=== PATIENT | female | born 1985 | race Caucasian/White ===

== ENCOUNTER 2016-11-20 16:28 | Emergency (ER) | payer MEDICAID ==
[2016-11-20] MEDS ORDERED: NORMAL SALINE 1000 ML 1,000 ML IV ONE (16:35)
[2016-11-20] MEDS ORDERED: ONDANSETRON HCL INJ/PF 4 MG/2 ML SDV IV ONE (16:35)
[2016-11-20] MEDS ORDERED: KETOROLAC TROMETHAMINE INJ/PF 30 MG/1 ML SDV IV ONE (16:35)
[2016-11-20] MEDS ORDERED: MORPHINE SULFATE 10 MG/ML INJ IV ONE (16:38)
--- NOTE | 2016-11-20 16:38 | ER Document Report ---
ED Medical Screen (RME) - General Stated Complaint: LOW RIGHT QUADRANT PAIN Time seen by provider: 16:37 Mode of Arrival: Wheelchair Information source: Patient Notes: 31-year-old female that drove herself to the emergency room is clammy and pale complaining of sudden onset of right lower quadrant pain 2 hours ago. No history of kidney stones. She is hyperventilating, flailing and screaming in pain. I have greeted and performed a rapid initial assessment of this patient. A comprehensive ED assessment, evaluation of the patient, analysis of test results , and completion of the medical decision making process will be contacted by additional ED providers. TRAVEL OUTSIDE OF THE [place] IN LAST 30 DAYS: No - Related Data Allergies/Adverse Reactions: Sulfa (Sulfonamide Antibiotics) Allergy (Intermediate, Verified 08/10/16 18:25) Hives Past Medical History Pulmonary Medical History: Reports: Hx Pneumonia - AN Renal/ Medical History: Reports: Hx Kidney Stones Psychiatric Medical History: Reports: Hx Anxiety, Hx Attention Deficit Hyperactivity Disorder, Hx Depression Past Surgical History: Reports: Hx Section - x1, Hx Oral Surgery - JAW , Hx Orthopedic Surgery - L arm, jaw - Immunizations Immunizations up to date: Yes Hx Diphtheria, Pertussis, Tetanus Vaccination: Yes
[2016-11-20 17:02] LABS: ABSOLUTE BASOPHILS # (AUTO) 0.1 10^3/uL (0.0-0.2); ABSOLUTE EOSINOPHILS # (AUTO) 0.1 10^3/uL (0.0-0.6); ABSOLUTE LYMPHOCYTES (AUTO) 4.5 10^3/uL (0.5-4.7); ABSOLUTE MONOCYTES (AUTO) 1.4 10^3/uL (0.1-1.4); ABSOLUTE NEUT (AUTO) 7.9 10^3/uL (1.7-8.2); BASOPHILS % (AUTO) 0.5 % (0-2); EOSINOPHILS % (AUTO) 0.4 % (0-6); HEMATOCRIT 37.9 % (36.0-47.0); HEMOGLOBIN 12.6 g/dL (12.0-15.5); HGB HCT DIFFERENCE -0.1; LYMPHOCYTES % (AUTO) 32.1 % (13-45); MEAN CORPUSCULAR HEMOGLOBIN 28.5 pg (27.0-33.4); MEAN CORPUSCULAR HGB CONC 33.2 g/dL (32.0-36.0); MEAN CORPUSCULAR VOLUME 86 fl (80-97); MONOCYTES % (AUTO) 10.3 % (3-13); RED BLOOD COUNT 4.42 10^6/uL (3.72-5.28); RED CELL DISTRIBUTION WIDTH 16.8 % (11.5-14.0); SEGMENTED NEUTROPHILS % (AUTO) 56.7 % (42-78)
[2016-11-20 17:22] LABS: ALANINE AMINOTRANSFERASE 17 U/L (9-52); ALBUMIN 4.4 g/dL (3.5-5.0); ALKALINE PHOSPHATASE 76 U/L (38-126); ANION GAP 13 (5-19); ASPARTATE AMINO TRANSFERASE 15 U/L (14-36); BILIRUBIN,TOTAL 0.4 mg/dL (0.2-1.3); BLOOD UREA NITROGEN 13 mg/dL (7-20); CARBON DIOXIDE 21 mmol/L (22-30); CHLORIDE 105 mmol/L (98-107); CREATININE RESULT 0.69 mg/dL (0.52-1.25); GLUCOSE 126 mg/dL (75-110); SODIUM 138.9 mmol/L (137-145); TOTAL PROTEIN 7.5 g/dL (6.3-8.2)
[2016-11-20] MEDS ORDERED: HYDROMORPHONE HCL INJ/PF 2 MG/ML AMPULE IV ONE (17:22)
[2016-11-20] MEDS ORDERED: NORMAL SALINE 1000 ML 1,000 ML IV PRN (17:23)
--- NOTE | 2016-11-20 17:27 | ER Document Report ---
ED GI/ - General Chief Complaint: Abdominal Pain Stated Complaint: LOW RIGHT QUADRANT PAIN Time seen by provider: 17:26 Mode of Arrival: Wheelchair Information source: Patient Notes: This is a 31-year-old female with a history of ADHD, depression, anxiety who presents to the emergency room with lower abdominal pain since yesterday. Patient is 2 para 2 when states she just started bleeding this morning. Positive nausea. TRAVEL OUTSIDE OF THE [place] IN LAST 30 DAYS: No - HPI Patient complains to provider of: Abdominal pain Onset: Yesterday Timing/Duration: Gradual Quality of pain: Dull Severity at maximum: Moderate Severity in ED: Moderate Pain Level: 4 Context: denies: Bad food, Lifting, Location: Suprapubic Vaginal bleeding (Compared to normal period): Heavier Sexual history: Active Associated symptoms: denies: Constipation, Shortness of breath Exacerbated by: Denies Relieved by: Denies Similar symptoms previously: No Recently seen / treated by doctor: No - Related Data Allergies/Adverse Reactions: Sulfa (Sulfonamide Antibiotics) Allergy (Intermediate, Verified 08/10/16 18:25) Hives Past Medical History - General Information source: Patient - Social History Smoking Status: Current Every Day Smoker Cigarette use (# per day): Yes Chew tobacco use (# tins/day): No Smoking Education Provided: No - 1 pack per day Frequency of alcohol use: None Drug Abuse: None Lives with: Family Family History: None Patient has suicidal ideation: No Patient has homicidal ideation: No - Medical History Medical History: Negative Pulmonary Medical History: Reports: Hx Pneumonia - AN Renal/ Medical History: Reports: Hx Kidney Stones Psychiatric Medical History: Reports: Hx Anxiety, Hx Attention Deficit Hyperactivity Disorder, Hx Depression Past Surgical History: Reports: Hx Section - x1, Hx Oral Surgery - JAW , Hx Orthopedic Surgery - L arm, jaw - Immunizations Immunizations up to date: Yes Hx Diphtheria, Pertussis, Tetanus Vaccination: Yes Hx Pneumococcal Vaccination: 10/09/00 Review of Systems - Review of Systems Notes: Review of systems: Constitutional: Denies fever, chills. EENT: Denies ear pain, sinus tenderness, throat pain, throat swelling. Cardiovascular: Denies chest pain, palpitations, dyspnea or edema. Respiratory: Denies wheezing, cough, hemoptysis. Abdomen: Lower abdominal pain. Positive nausea. No blood per rectum. Genitourinary: Vaginal bleeding Musculoskeletal: denies joint pain or swelling, denies back pain. Neurologic: Denies headache, photophobia, neck stiffness, weakness. Denies loss of bowel or bladder function. Denies saddle anesthesia. Skin: Denies rash, lesions. Physical Exam - Vital signs Vitals: Resp Pulse Ox 13 99 11/20/16 16:44 11/20/16 16:44 Notes: Physical exam: GENERAL: 31-year-old female, alert and oriented 3, appears in distress. HEAD: Atraumatic, normocephalic. EYES: Pupils equal round and reactive to light, extraocular movements intact, sclera anicteric, conjunctiva are normal. ENT: TMs normal, nares patent, oropharynx clear without exudates. Moist mucous membranes. NECK: Normal range of motion, supple without lymphadenopathy or JVD. LUNGS: Breath sounds clear to auscultation bilaterally and equal. No wheezes rales or rhonchi. HEART: Regular rate and rhythm without murmurs, rubs or gallops. ABDOMEN: Soft, normoactive bowel sounds. Patient does have lower abdominal ( suprapubic) tenderness. No guarding, no rebound. No masses appreciated. Vaginal: Performed with female motion picture scene builder. There is blood in the vault without tissue. Patient does have uterine tenderness. The os is closed. EXTREMITIES: Normal range of motion, no pitting or edema. No clubbing or cyanosis. NEUROLOGICAL: Cranial nerves II through XII grossly intact. Normal speech, normal gait. PSYCH: Normal mood, normal affect. SKIN: Warm, Dry, normal turgor, no rashes or lesions noted. Course - Vital Signs Vital signs: Temp Pulse Resp BP Pulse Ox 20 124/79 99 11/20/16 19:01 11/20/16 19:01 11/20/16 19:01 - Laboratory Result Diagrams: 11/20/16 16:35 11/20/16 16:35 Laboratory results interpreted by me: 11/20/16 11/20/16 16:35 16:35 WBC 14.0 H RDW 16.8 H Carbon Dioxide 21 L Glucose 126 H Beta HCG, Quant 212.75 H - Diagnostic Test Radiology reviewed: Image reviewed, Reports reviewed - Transvaginal ultrasound reveals an 8 week gestational without a pole. It is an abnormal sac which is moving down to the cervix: Miscarriage in progress. Discharge - Discharge Clinical Impression: miscarriage Condition: Stable Disposition: HOME, SELF-CARE Instructions: Miscarriage ([facility]), Miscarriage Impending ([facility]) Additional Instructions: Recommendations: Rest, drink plenty of fluids, take Percocet as needed for pain. Take Phenergan for nausea. You will experience passage of tissue and bleeding. Return to the emergency room for worsening pain, worsening bleeding or any concerns he getting worse. Call the [facility] tomorrow: Tell them that you were seen in the emergency room and treated for pain and bleeding in the setting of early and they wanted to followed up in clinic. Prescriptions: Oxycodone HCl/Acetaminophen [Percocet 5-325 mg Tablet] 1 - 2 tab PO ASDIR PRN # 25 tablet PRN Reason: Promethazine HCl [Phenergan 25 mg Tablet] 25 mg PO Q6H PRN #15 tablet PRN Reason: Forms: Return to Work Referrals: ELENA MOELLER MD [ACTIVE STAFF] - Follow up in 1 week (Call the clinic tomorrow for follow-up appointment: Let them know that you were in the emergency room for pain and vaginal bleeding and the ultrasound showed a miscarriage in progress.)
[2016-11-20 17:31] LABS: POTASSIUM 3.7 mmol/L (3.6-5.0)
[2016-11-20] MEDS ORDERED: ONDANSETRON ODT 4 MG TAB (6 TAB/DSPK) PO PRN (18:56)
[2016-11-20] MEDS ORDERED: HYDROCODONE/ACETAMINOPHEN 5-325 MG 6 TAB/DSPK PO PRN (18:56)
[2016-11-20 19:10] VITALS: BP 124/79
== END 2016-11-20 19:45 | disposition home or self-care (01) ==
LOC: ER 16:28
DX: O03.9 Complete or unspecified spontaneous abortion without complication (principal); R10.31 Right lower quadrant pain; F17.210 Nicotine dependence, cigarettes, uncomplicated; Z88.2 Allergy status to sulfonamides; Z87.442 Personal history of urinary calculi
CPT/HCPCS: 99284; 96361; 96374; 96375; 36415; 84702; 85025; 80053; 76817; J1885; J2270; J1170; J2405; J7030

== ENCOUNTER 2016-12-04 13:12 | Inpatient (IN) | payer SELFPAY ==
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
[2016-12-04 14:43] LABS: HEMATOCRIT 35.3 % (36.0-47.0); HEMOGLOBIN 11.9 g/dL (12.0-15.5); HGB HCT DIFFERENCE 0.4; MEAN CORPUSCULAR HEMOGLOBIN 28.6 pg (27.0-33.4); MEAN CORPUSCULAR HGB CONC 33.8 g/dL (32.0-36.0); MEAN CORPUSCULAR VOLUME 85 fl (80-97); RED BLOOD COUNT 4.18 10^6/uL (3.72-5.28); RED CELL DISTRIBUTION WIDTH 16.3 % (11.5-14.0); WHITE BLOOD COUNT 25.6 10^3/uL (4.0-10.5)
[2016-12-04 14:51] LABS: APPEARANCE,URINE CLOUDY; BILIRUBIN,URINE NEGATIVE (NEGATIVE); GLUCOSE, URINE NEGATIVE (NEGATIVE); KETONES,URINE NEGATIVE (NEGATIVE); LEUKOCYTE ESTERASE,URINE SMALL (NEGATIVE); NITRITE,URINE NEGATIVE (NEGATIVE); PROTEIN,URINE 30 mg/dL (NEGATIVE); URINE SPECIFIC GRAVITY 1.017; UROBILINOGEN,URINE NEGATIVE mg/dL (<2.0)
[2016-12-04 14:59] LABS: URINE BARBITURATES SCREEN NEGATIVE; URINE METHADONE SCREEN NEGATIVE; URINE OPIATES LOW NEGATIVE; URINE PHENCYCLIDINE SCREEN NEGATIVE
[2016-12-04 15:02] LABS: BASOPHILS % (MANUAL) 0 % (0-2); EOSINOPHILS % (MANUAL) 0 % (0-6); LYMPHOCYTES % (MANUAL) 12 % (13-45); TOTAL CELLS COUNTED 100
[2016-12-04 15:03] LABS: ANISOCYTOSIS SLIGHT
[2016-12-04 15:04] LABS: ALANINE AMINOTRANSFERASE 38 U/L (9-52); ALBUMIN 4.8 g/dL (3.5-5.0); ALKALINE PHOSPHATASE 112 U/L (38-126); ANION GAP 18 (5-19); ASPARTATE AMINO TRANSFERASE 47 U/L (14-36); BILIRUBIN,TOTAL 0.7 mg/dL (0.2-1.3); BLOOD UREA NITROGEN 68 mg/dL (7-20); CALCIUM 10.4 mg/dL (8.4-10.2); CARBON DIOXIDE 15 mmol/L (22-30); CHLORIDE 96 mmol/L (98-107); CREATININE RESULT 3.71 mg/dL (0.52-1.25); GLUCOSE 102 mg/dL (75-110); POTASSIUM 3.9 mmol/L (3.6-5.0); TOTAL PROTEIN 8.4 g/dL (6.3-8.2)
[2016-12-04] MEDS: NORMAL SALINE 1000 ML 1,000 ML IV PRN ×2 (15:31→18:07)
[2016-12-04] MEDS ORDERED: LORAZEPAM INJ 2 MG/1 ML VIAL IV ONE (15:51)
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
[2016-12-04] MEDS ORDERED: NORMAL SALINE 1000 ML 1,000 ML IV PRN (17:39)
[2016-12-04] MEDS ORDERED: PROMETHAZINE HCL 25 MG TABLET PO PRN (17:39)
[2016-12-04] MEDS ORDERED: MAGNESIUM HYDROXIDE SUSP 30 ML UDCUP PO PRN (17:39)
[2016-12-04 18:29] LABS: MAGNESIUM 2.4 mg/dL (1.6-2.3); PHOSPHORUS 5.5 mg/dL (2.5-4.5)
[2016-12-04 18:35] LABS: ALCOHOL < 10 mg/dL (NONE DETECTED)
[2016-12-04 23:46] LABS: ANION GAP 9 (5-19); CALCIUM 8.6 mg/dL (8.4-10.2); CARBON DIOXIDE 20 mmol/L (22-30); CHLORIDE 104 mmol/L (98-107); CREATININE RESULT 1.49 mg/dL (0.52-1.25); GLUCOSE 121 mg/dL (75-110); POTASSIUM 3.3 mmol/L (3.6-5.0); SODIUM 132.7 mmol/L (137-145)
[2016-12-05 00:03] LABS: BLOOD UREA NITROGEN 45 mg/dL (7-20)
[2016-12-05] MEDS: HEPARIN SOD (PORCINE) 5,000 UNIT/ML 1 ML SYRINGE SUBCUT SCH ×2 (00:11→05:42)
[2016-12-05] MEDS: FAMOTIDINE 20 MG TABLET PO SCH ×2 (00:12→11:45)
[2016-12-05] MEDS: LORAZEPAM INJ 2 MG/1 ML VIAL IV PRN ×2 (00:13→01:32)
[2016-12-05] MEDS: ACETAMINOPHEN 325 MG TABLET PO PRN ×2 (01:32→05:42)
[2016-12-05] MEDS ORDERED: LORAZEPAM INJ 2 MG/1 ML VIAL IV PRN (02:07)
[2016-12-05] MEDS ORDERED: POTASSIUM CHLORIDE 20 MEQ/15 ML UDCUP PO ONE (02:15)
[2016-12-05] MEDS ORDERED: POTASSIUM CHLORIDE 20 MEQ/15 ML UDCUP ONE (02:48)
[2016-12-05 07:34] LABS: ABSOLUTE LYMPHOCYTES (AUTO) 1.8 10^3/uL (0.5-4.7); ABSOLUTE NEUT (AUTO) 7.5 10^3/uL (1.7-8.2); BASOPHILS % (AUTO) 0.3 % (0-2); EOSINOPHILS % (AUTO) 0.4 % (0-6); HGB HCT DIFFERENCE 0.5; LYMPHOCYTES % (AUTO) 17.2 % (13-45); MEAN CORPUSCULAR HEMOGLOBIN 29.2 pg (27.0-33.4); MEAN CORPUSCULAR HGB CONC 33.7 g/dL (32.0-36.0); MEAN CORPUSCULAR VOLUME 87 fl (80-97); MONOCYTES % (AUTO) 9.4 % (3-13); RED BLOOD COUNT 3.24 10^6/uL (3.72-5.28); RED CELL DISTRIBUTION WIDTH 16.3 % (11.5-14.0); SEGMENTED NEUTROPHILS % (AUTO) 72.7 % (42-78); WHITE BLOOD COUNT 10.4 10^3/uL (4.0-10.5)
[2016-12-05 07:38] LABS: ANION GAP 9 (5-19); BLOOD UREA NITROGEN 30 mg/dL (7-20); CALCIUM 8.5 mg/dL (8.4-10.2); CARBON DIOXIDE 17 mmol/L (22-30); CHLORIDE 110 mmol/L (98-107); CREATINE KINASE 899 U/L (30-135); CREATININE RESULT 0.94 mg/dL (0.52-1.25); GLUCOSE 104 mg/dL (75-110); POTASSIUM 3.8 mmol/L (3.6-5.0); SODIUM 135.6 mmol/L (137-145)
[2016-12-05 07:43] LABS: HEMOGLOBIN 9.5 g/dL (12.0-15.5)
--- NOTE | 2016-12-05 08:09 | EKG REPORT ---
SEVERITY:- BORDERLINE ECG - SINUS TACHYCARDIA BORDERLINE T WAVE ABNORMALITIES : Confirmed by: Gurpreet Smith MD 05-Dec-2016 08:08:53
[2016-12-05] MEDS ORDERED: DOCUSATE SODIUM 100 MG CAPSULE PO SCH (10:00)
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
[2016-12-05 14:11] VITALS: BP 128/71
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
[2016-12-06 11:40] LABS: CREATININE URINE 104.8 mg/dL (Not Estab.)
== END 2016-12-05 16:36 | disposition home or self-care (01) | DRG 683 ==
LOC: ER 13:12 → EH 16:06 → UNDOADMIN 16:06 → EEVIPCON 17:39 → EH 17:39 → 2N 20:37 → 4N 12-05 04:15
DX: N17.0 Acute kidney failure with tubular necrosis (principal); E87.1 Hypo-osmolality and hyponatremia; E87.2 Acidosis; D63.8 Anemia in other chronic diseases classified elsewhere; D72.823 Leukemoid reaction; T79.6XXA Traumatic ischemia of muscle, initial encounter; Y04.0XXA Assault by unarmed brawl or fight, initial encounter; F14.10 Cocaine abuse, uncomplicated; R25.8 Other abnormal involuntary movements; F90.9 Attention-deficit hyperactivity disorder, unspecified type; F41.1 Generalized anxiety disorder; F32.9 Major depressive disorder, single episode, unspecified; F60.9 Personality disorder, unspecified; F17.210 Nicotine dependence, cigarettes, uncomplicated; Z79.899 Other long term (current) drug therapy; Z88.2 Allergy status to sulfonamides
CPT/HCPCS: 36415; 76775; 80048; 80053; 80307; 81001; 82550; 82570; 83605; 83735; 83930; 83935; 84100; 84156; 84300; 84443; 84703; 85025; 93005; 93010; 99291; J1644; J2060; J7030

== ENCOUNTER → 2016-12-12 | Outpatient (CLI) | payer OTHER | LOC: CCC 11:41 | DX: E05.80 Other thyrotoxicosis without thyrotoxic crisis or storm (principal); Z53.9 Procedure and treatment not carried out, unspecified reason ==

== ENCOUNTER → 2016-12-31 | Outpatient (CLI) | payer OTHER ==
[2016-12-31 14:15] LABS: THYROID STIMULATING HORMONE 0.72 uIU/mL (0.47-4.68)
== END ==
LOC: OD 09:12
DX: E06.9 Thyroiditis, unspecified (principal)
CPT/HCPCS: 36415; 82550; 83036; 84439; 84443

== ENCOUNTER 2017-09-08 20:35 | Emergency (ER) | payer SELFPAY ==
[2017-09-08 21:01] VITALS: BP 107/73
--- NOTE | 2017-09-08 23:40 | ER Document Report ---
HPI - HPI Pain Level: Denies - CONSTITUTIONAL Constitutional: REPORTS: Fever. DENIES: Chills - EENT EENT: REPORTS: Sore Throat - RESPIRATORY Respiratory: REPORTS: Coughing - nonproductive - REPRODUCTIVE LMP: now Reproductive: DENIES: : Past Medical History - Social History Smoking Status: Current Every Day Smoker Chew tobacco use (# tins/day): No Frequency of alcohol use: None Drug Abuse: None Family History: None Patient has suicidal ideation: No Patient has homicidal ideation: No Pulmonary Medical History: Reports: Hx Pneumonia - AN INFANT Renal/ Medical History: Reports: Hx Kidney Stones. Denies: Hx Peritoneal Dialysis Psychiatric Medical History: Reports: Hx Anxiety, Hx Attention Deficit Hyperactivity Disorder, Hx Depression - anxiety, Hx Personality Disorder Past Surgical History: Reports: Hx Section - x2, Hx Oral Surgery - JAW , Hx Orthopedic Surgery - L arm, jaw - Immunizations Immunizations up to date: Yes Hx Diphtheria, Pertussis, Tetanus Vaccination: Yes Hx Pneumococcal Vaccination: 10/09/00 Vertical Provider Document - INFECTION CONTROL TRAVEL OUTSIDE OF THE [place] IN LAST 30 DAYS: No - RESPIRATORY O2 Sat by Pulse Oximetry: 93 Course - Vital Signs Vital signs: Temp Pulse Resp BP Pulse Ox 98.3 F 90 20 107/73 93 09/08/17 21:01 09/08/17 21:01 09/08/17 21:01 09/08/17 21:01 09/08/17 21:01
== END 2017-09-08 23:40 | disposition left against medical advice (07) ==
LOC: ER 20:35
DX: Z53.21 Procedure and treatment not carried out due to patient leaving prior to being seen by health care provider (principal)

== ENCOUNTER 2018-03-28 13:45 | Emergency (ER) | payer SELFPAY ==
[2018-03-28] MEDS ORDERED: NORMAL SALINE 1000 ML 1,000 ML IV PRN (14:08)
[2018-03-28] MEDS ORDERED: ONDANSETRON 4 MG TAB.RAPDIS PO ONE (14:08)
--- NOTE | 2018-03-28 14:11 | ER Document Report ---
ED Medical Screen (RME) - General Chief Complaint: Vomiting Stated Complaint: VOMITING Time Seen by Provider: 03/28/18 14:05 Notes: The patient is a 32-year-old female who presents with 3 days of nausea and vomiting. She is trying to drink Gatorade, but is throwing it up. She denies abdominal pain, diarrhea, constipation, hematemesis or urinary symptoms. PE: Tachycardia, non-tender abdomen, normal bowel sounds I have greeted and performed a rapid initial assessment of this patient. A comprehensive ED assessment and evaluation of the patient, analysis of test results and completion of the medical decision making process will be conducted by additional ED providers. TRAVEL OUTSIDE OF THE [place] IN LAST 30 DAYS: No - Related Data Allergies/Adverse Reactions: Sulfa (Sulfonamide Antibiotics) Allergy (Intermediate, Verified 03/28/18 14:08) Hives Past Medical History - Social History Chew tobacco use (# tins/day): No Frequency of alcohol use: None Drug Abuse: None Pulmonary Medical History: Reports: Hx Pneumonia - AN Renal/ Medical History: Reports: Hx Kidney Stones. Denies: Hx Peritoneal Dialysis Psychiatric Medical History: Reports: Hx Anxiety, Hx Attention Deficit Hyperactivity Disorder, Hx Depression - anxiety, Hx Personality Disorder Past Surgical History: Reports: Hx Section - x2, Hx Oral Surgery - JAW , Hx Orthopedic Surgery - L arm, jaw - Immunizations Immunizations up to date: Yes Hx Diphtheria, Pertussis, Tetanus Vaccination: Yes Physical Exam - Vital signs Vitals: Temp Pulse Resp BP Pulse Ox 97.7 F 121 H 18 113/80 97 03/28/18 13:59 03/28/18 13:59 03/28/18 13:59 03/28/18 13:59 03/28/18 13:59 Course - Vital Signs Vital signs: Temp Pulse Resp BP Pulse Ox 97.7 F 121 H 18 113/80 97 03/28/18 13:59 03/28/18 13:59 03/28/18 13:59 03/28/18 13:59 03/28/18 13:59
[2018-03-28 15:17] LABS: APPEARANCE,URINE CLOUDY; BILIRUBIN,URINE NEGATIVE (NEGATIVE); GLUCOSE, URINE NEGATIVE (NEGATIVE); KETONES,URINE NEGATIVE (NEGATIVE); LEUKOCYTE ESTERASE,URINE TRACE (NEGATIVE); NITRITE,URINE NEGATIVE (NEGATIVE); PROTEIN,URINE NEGATIVE (NEGATIVE); URINE SPECIFIC GRAVITY 1.025
[2018-03-28 15:18] LABS: COLOR,URINE YELLOW
[2018-03-28 15:46] LABS: ABSOLUTE EOSINOPHILS # (AUTO) 0.1 10^3/uL (0.0-0.6); ABSOLUTE LYMPHOCYTES (AUTO) 1.5 10^3/uL (0.5-4.7); ABSOLUTE MONOCYTES (AUTO) 0.6 10^3/uL (0.1-1.4); BASOPHILS % (AUTO) 0.3 % (0-2); EOSINOPHILS % (AUTO) 1.3 % (0-6); HEMATOCRIT 46.2 % (36.0-47.0); HEMOGLOBIN 15.9 g/dL (12.0-15.5); LYMPHOCYTES % (AUTO) 25.1 % (13-45); MEAN CORPUSCULAR HEMOGLOBIN 30.6 pg (27.0-33.4); MEAN CORPUSCULAR HGB CONC 34.4 g/dL (32.0-36.0); MEAN CORPUSCULAR VOLUME 89 fl (80-97); MONOCYTES % (AUTO) 9.2 % (3-13); PLATELET COUNT 331 10^3/uL (150-450); RED BLOOD COUNT 5.18 10^6/uL (3.72-5.28); SEGMENTED NEUTROPHILS % (AUTO) 64.1 % (42-78); TOTAL CELLS COUNTED % (AUTO) 100 %; URINE AMPHETAMINES SCREEN NEGATIVE; URINE BARBITURATES SCREEN NEGATIVE; URINE BENZODIAZEPINES SCREEN NEGATIVE; URINE COCAINE SCREEN UNCONFIRMED POSITIVE; URINE MARIJUANA (THC) SCREEN NEGATIVE; URINE METHADONE SCREEN NEGATIVE; URINE PHENCYCLIDINE SCREEN NEGATIVE; WHITE BLOOD COUNT 6.2 10^3/uL (4.0-10.5)
[2018-03-28 15:48] LABS: ALANINE AMINOTRANSFERASE 31 U/L (9-52); ALBUMIN 4.7 g/dL (3.5-5.0); ALKALINE PHOSPHATASE 67 U/L (38-126); ANION GAP 13 (5-19); ASPARTATE AMINO TRANSFERASE 24 U/L (14-36); BILIRUBIN,DIRECT 0.3 mg/dL (0.0-0.4); BILIRUBIN,TOTAL 0.5 mg/dL (0.2-1.3); BLOOD UREA NITROGEN 16 mg/dL (7-20); CALCIUM 9.6 mg/dL (8.4-10.2); CARBON DIOXIDE 22 mmol/L (22-30); CHLORIDE 107 mmol/L (98-107); GLUCOSE 107 mg/dL (75-110); LIPASE 34.3 U/L (23-300); POTASSIUM 4.2 mmol/L (3.6-5.0); SODIUM 141.5 mmol/L (137-145); TOTAL PROTEIN 8.3 g/dL (6.3-8.2)
--- NOTE | 2018-03-28 16:27 | ER Document Report ---
ED General - General Chief Complaint: Vomiting Stated Complaint: VOMITING Time Seen by Provider: 03/28/18 14:05 TRAVEL OUTSIDE OF THE [place] IN LAST 30 DAYS: No - HPI Patient complains to provider of: Nausea vomiting Notes: Patient coming in for evaluation of nausea vomiting ongoing for the last 2-3 days. Patient denies any recent travel denies any sick contacts except for a niece that had a inner ear infection. Patient denies any abdominal pain chest pain. Patient denies any drug abuse any alcohol use patient upon my evaluation is resting comfortably discussing the daily events with friend at bedside - Related Data Allergies/Adverse Reactions: Sulfa (Sulfonamide Antibiotics) Allergy (Intermediate, Verified 03/28/18 14:08) Hives Past Medical History - Social History Smoking Status: Current Every Day Smoker Chew tobacco use (# tins/day): No Frequency of alcohol use: None Drug Abuse: None Family History: None Patient has suicidal ideation: No Patient has homicidal ideation: No Pulmonary Medical History: Reports: Hx Pneumonia - AN Renal/ Medical History: Reports: Hx Kidney Stones. Denies: Hx Peritoneal Dialysis Psychiatric Medical History: Reports: Hx Anxiety, Hx Attention Deficit Hyperactivity Disorder, Hx Depression - anxiety, Hx Personality Disorder Past Surgical History: Reports: Hx Section - x2, Hx Oral Surgery - JAW , Hx Orthopedic Surgery - L arm, jaw - Immunizations Immunizations up to date: Yes Hx Diphtheria, Pertussis, Tetanus Vaccination: Yes Hx Pneumococcal Vaccination: 10/09/00 Review of Systems - Review of Systems Constitutional: No symptoms reported EENT: No symptoms reported Cardiovascular: No symptoms reported Respiratory: No symptoms reported Gastrointestinal: Nausea, Vomiting Genitourinary: No symptoms reported Female Genitourinary: No symptoms reported Musculoskeletal: No symptoms reported Skin: No symptoms reported Hematologic/Lymphatic: No symptoms reported Neurological/Psychological: No symptoms reported -: Yes All other systems reviewed and negative Physical Exam - Vital signs Vitals: Temp Pulse Resp BP Pulse Ox 97.7 F 121 H 18 113/80 97 03/28/18 13:59 03/28/18 13:59 03/28/18 13:59 03/28/18 13:59 03/28/18 13:59 Interpretation: Normal - General General appearance: Appears well, Alert - HEENT Head: Normocephalic, Atraumatic Eyes: Normal Pupils: PERRL - Respiratory Respiratory status: No respiratory distress Chest status: Nontender Breath sounds: Normal Chest palpation: Normal - Cardiovascular Rhythm: Regular Heart sounds: Normal auscultation Murmur: No - Abdominal Inspection: Normal Distension: No distension Bowel sounds: Normal Tenderness: Nontender Organomegaly: No organomegaly - Back Back: Normal, Nontender - Extremities General upper extremity: Normal inspection, Nontender, Normal color, Normal ROM , Normal temperature General lower extremity: Normal inspection, Nontender, Normal color, Normal ROM , Normal temperature, Normal weight bearing. No: Kareem's sign - Neurological Neuro grossly intact: Yes Cognition: Normal Orientation: AAOx4 Melissa Coma Scale Eye Opening: Spontaneous Melissa Coma Scale Verbal: Oriented Melissa Coma Scale Motor: Obeys Commands Melissa Coma Scale Total: 15 Speech: Normal Motor strength normal: LUE, RUE, LLE, RLE Sensory: Normal - Psychological Associated symptoms: Normal affect, Normal mood - Skin Skin Temperature: Warm Skin Moisture: Dry Skin Color: Normal Course - Re-evaluation Re-evalutation: 03/28/18 22:52 Vital signs improved after hydration. Patient was positive for cocaine although she denies any drug abuse. Possibly patient more likely has a viral gastroenteritis. Feeling better after treatment here in ER no critical findings patient discharged home. The patient presents with nausea vomiting without signs of peritonitis or other life-threatening or serious etiology. The patient appears stable for discharge and has been instructed to return immediately if the symptoms worsen in any way, or in 8-12hr if not improved for re-evaluation. The patient has been instructed to return if the symptoms worsen or change in any way. - Vital Signs Vital signs: Temp Pulse Resp BP Pulse Ox 97.9 F 79 20 114/55 L 100 03/28/18 16:51 03/28/18 16:51 03/28/18 16:51 03/28/18 16:51 03/28/18 16:51 - Laboratory Result Diagrams: 03/28/18 14:40 03/28/18 14:40 Laboratory results interpreted by me: 03/28/18 03/28/18 03/28/18 14:40 14:40 14:40 Hgb 15.9 H Total Protein 8.3 H Urine Urobilinogen 2.0 H Ur Leukocyte Esterase TRACE H Discharge - Discharge Clinical Impression: Nausea & vomiting Qualifiers: Vomiting type: unspecified Vomiting Intractability: unspecified Qualified Code( s): R11.2 - Nausea with vomiting, unspecified Condition: Good Disposition: HOME, SELF-CARE Instructions: Reglan ([facility]), Vomiting ([facility]) Additional Instructions: Your laboratory studies not show any significant pathology. Please continue to hydrate herself with Gatorade and water. Take medications as prescribed Tylenol and Motrin for any pain Prescriptions: Metoclopramide HCl [Reglan] 5 mg PO Q6 #30 tablet Ondansetron [Zofran Odt] 4 mg PO Q6 PRN #30 tab.rapdis PRN Reason: For Nausea/Vomiting Forms: Return to Work Referrals: ERVIN POWER, SEAMER OPERATOR [Primary Care Provider] - Follow up as needed
[2018-03-28 16:53] VITALS: BP 114/55
== END 2018-03-28 16:53 | disposition home or self-care (01) ==
LOC: ER 13:45
DX: R11.2 Nausea with vomiting, unspecified (principal); F17.200 Nicotine dependence, unspecified, uncomplicated; Z88.2 Allergy status to sulfonamides
CPT/HCPCS: 99284; 96360; 36415; 80307 ×2; 83690; 85025; 81025; 80053; 81001; S0119; J7030

== ENCOUNTER 2018-07-20 23:52 | Emergency (ER) | payer SELFPAY ==
[2018-07-21] MEDS ORDERED: ONDANSETRON 4 MG TAB.RAPDIS PO ONE ×2 (00:43→02:56)
[2018-07-21 01:01] LABS: ABSOLUTE BASOPHILS # (AUTO) 0.1 10^3/uL (0.0-0.2); ABSOLUTE LYMPHOCYTES (AUTO) 3.4 10^3/uL (0.5-4.7); ABSOLUTE MONOCYTES (AUTO) 1.5 10^3/uL (0.1-1.4); ABSOLUTE NEUT (AUTO) 12.4 10^3/uL (1.7-8.2); BASOPHILS % (AUTO) 0.6 % (0-2); HEMATOCRIT 41.1 % (36.0-47.0); LYMPHOCYTES % (AUTO) 19.4 % (13-45); MEAN CORPUSCULAR HEMOGLOBIN 30.8 pg (27.0-33.4); MEAN CORPUSCULAR VOLUME 90 fl (80-97); MONOCYTES % (AUTO) 8.5 % (3-13); PLATELET COUNT 386 10^3/uL (150-450); RED BLOOD COUNT 4.55 10^6/uL (3.72-5.28); RED CELL DISTRIBUTION WIDTH 14.1 % (11.5-14.0); SEGMENTED NEUTROPHILS % (AUTO) 71.5 % (42-78); TOTAL CELLS COUNTED % (AUTO) 100 %; WHITE BLOOD COUNT 17.4 10^3/uL (4.0-10.5)
[2018-07-21 01:06] LABS: APPEARANCE,URINE SLIGHTLY-CLOUDY; BILIRUBIN,URINE NEGATIVE (NEGATIVE); COLOR,URINE YELLOW; GLUCOSE, URINE NEGATIVE (NEGATIVE); KETONES,URINE 20 mg/dL (NEGATIVE); LEUKOCYTE ESTERASE,URINE NEGATIVE (NEGATIVE); NITRITE,URINE NEGATIVE (NEGATIVE); PROTEIN,URINE 100 mg/dL (NEGATIVE); URINE SPECIFIC GRAVITY 1.032; UROBILINOGEN,URINE NEGATIVE mg/dL (<2.0)
[2018-07-21 01:21] LABS: ALANINE AMINOTRANSFERASE 29 U/L (9-52); ALBUMIN 4.8 g/dL (3.5-5.0); ALKALINE PHOSPHATASE 71 U/L (38-126); ANION GAP 12 (5-19); ASPARTATE AMINO TRANSFERASE 38 U/L (14-36); BILIRUBIN,DIRECT 0.3 mg/dL (0.0-0.4); BILIRUBIN,TOTAL 0.6 mg/dL (0.2-1.3); BLOOD UREA NITROGEN 19 mg/dL (7-20); CALCIUM 10.6 mg/dL (8.4-10.2); CARBON DIOXIDE 22 mmol/L (22-30); CHLORIDE 109 mmol/L (98-107); GLUCOSE 86 mg/dL (75-110); LIPASE 30.6 U/L (23-300); POTASSIUM 4.6 mmol/L (3.6-5.0); SODIUM 143.3 mmol/L (137-145); TOTAL PROTEIN 8.2 g/dL (6.3-8.2)
[2018-07-21 01:36] LABS: URINE BARBITURATES SCREEN NEGATIVE; URINE BENZODIAZEPINES SCREEN NEGATIVE; URINE MARIJUANA (THC) SCREEN NEGATIVE; URINE METHADONE SCREEN NEGATIVE; URINE PHENCYCLIDINE SCREEN NEGATIVE
[2018-07-21 02:18] LABS: URINE COCAINE SCREEN UNCONFIRMED POSITIVE
[2018-07-21] MEDS ORDERED: ONDANSETRON ODT 4 MG TAB (6 TAB/ER DISP) PO PRN (03:35)
--- NOTE | 2018-07-21 03:36 | ER Document Report ---
ED GI/ - General Chief Complaint: Abdominal Pain Stated Complaint: ABDOMINAL PAIN Time Seen by Provider: 07/21/18 00:35 Mode of Arrival: Ambulatory Information source: Patient Notes: Patient is a 33-year-old female who presents with chief complaint of abdominal pain with vomiting that started this morning. Patient denies any diarrhea or fever. Patient denies any abnormal vaginal discharge or urinary symptoms. Patient keeps stating "I know I am crazy and I know you guys think I am crazy but I am not here for that". Patient reports use of marijuana but denies any other drug use. TRAVEL OUTSIDE OF THE [place] IN LAST 30 DAYS: No - Related Data Allergies/Adverse Reactions: Sulfa (Sulfonamide Antibiotics) Allergy (Intermediate, Verified 07/21/18 00:05) Hives Past Medical History - Social History Smoking Status: Current Every Day Smoker Frequency of alcohol use: None Drug Abuse: Marijuana Family History: None Patient has suicidal ideation: No Patient has homicidal ideation: No Pulmonary Medical History: Reports: Hx Pneumonia - AN Renal/ Medical History: Reports: Hx Kidney Stones. Denies: Hx Peritoneal Dialysis Psychiatric Medical History: Reports: Hx Anxiety, Hx Attention Deficit Hyperactivity Disorder, Hx Depression - anxiety, Hx Personality Disorder Past Surgical History: Reports: Hx Section - x2, Hx Oral Surgery - JAW , Hx Orthopedic Surgery - L arm, jaw - Immunizations Immunizations up to date: Yes Hx Diphtheria, Pertussis, Tetanus Vaccination: Yes Hx Pneumococcal Vaccination: 10/09/00 Physical Exam - Vital signs Vitals: Temp Pulse Resp BP Pulse Ox 98.2 F 118 H 20 136/66 H 95 07/21/18 00:10 07/21/18 00:10 07/21/18 00:10 07/21/18 00:10 07/21/18 00:10 - Notes Notes: PHYSICAL EXAMINATION: GENERAL: Well-appearing, well-nourished and in no acute distress, appears to be under the influence of some type of substance. HEAD: Atraumatic, normocephalic. EYES: Pupils equal round and reactive to light, extraocular movements intact, conjunctiva are normal. ENT: Nares patent, oropharynx clear without exudates. Moist mucous membranes. NECK: Normal range of motion, supple without lymphadenopathy LUNGS: Breath sounds clear to auscultation bilaterally and equal. No wheezes rales or rhonchi. HEART: Regular rate and rhythm without murmurs ABDOMEN: Soft, nontender, nondistended abdomen. No guarding, no rebound. No masses appreciated. Female : No CVA tenderness Musculoskeletal: Normal range of motion, no pitting or edema. No cyanosis. NEUROLOGICAL: Cranial nerves grossly intact. Normal speech, normal gait. Normal sensory, motor exams PSYCH: Normal mood, pressured speech. SKIN: Warm, Dry, normal turgor, no rashes or lesions noted. Course - Re-evaluation Re-evalutation: Patient appears to be under the influence of some type of mind altering substance. UDS will be ordered. Abdomen is soft and nontender. No CVA tenderness. Vital signs within normal limits on arrival. CBC with elevated white blood count of 17.4 likely due to vomiting. Chemistry is unremarkable. Urinalysis is normal. Tox screen shows cocaine. When this was discussed with the patient she states that she does not know how the cocaine in her system. Eventually patient does report that she swallowed some water that tasted strange and that she believed had cocaine in it. Patient's vital signs have been stable. Patient's significant other is at the bedside and appears to be clinically sober. Patient will be discharged home with ED return precautions for abdominal pain. - Vital Signs Vital signs: Temp Pulse Resp BP Pulse Ox 97.7 F 107 H 18 100/76 100 07/21/18 03:49 07/21/18 03:49 07/21/18 03:49 07/21/18 03:49 07/21/18 03:49 - Laboratory Result Diagrams: 07/21/18 00:45 07/21/18 00:45 Laboratory results interpreted by me: 07/21/18 07/21/18 07/21/18 00:45 00:45 00:45 WBC 17.4 H RDW 14.1 H Absolute Neutrophils 12.4 H Absolute Monocytes 1.5 H Chloride 109 H Est GFR (Non-Af Amer) 59 L Calcium 10.6 H AST 38 H Urine Protein 100 H Urine Ketones 20 H Urine Blood LARGE H Urine Ascorbic Acid 40 H Discharge - Discharge Clinical Impression: Abdominal pain Qualifiers: Abdominal location: unspecified location Qualified Code(s): R10.9 - Unspecified abdominal pain Cocaine adverse reaction Qualifiers: Encounter type: initial encounter Qualified Code(s): T40.5X5A - Adverse effect of cocaine, initial encounter Condition: Stable Disposition: HOME, SELF-CARE Additional Instructions: Abdominal Pain There are many causes of abdominal pain. Pain can mean a serious problem requiring surgery (such as appendicitis). It can also be an innocent problem that goes away on its own (such as a viral infection). Often, time must pass to determine the cause of pain. The physician does not feel that hospitalization is necessary, at present. Things may change within the next 24 hours. Call the doctor or come back for re- examination if any problems occur, such as: (1) Pain that becomes more severe, steady, or becomes concentrated in one specific area. Also, pain that is more severe with movement or coughing. (2) Vomiting that persists or becomes more frequent. (3) Blood in the vomitus, urine, or bowel movements. Blood in the stool may have a tarry or black appearance. (4) Shaking chills or fever greater than 100 degrees F. (5) The abdomen becomes more distended or swollen. (6) Bowel movements cease. (7) Failure to improve as expected. Cocaine Abuse Cocaine causes many dangerous medical problems. Problems can occur even with "usual" amounts. Cocaine affects judgement, creating a sense of invulnerability. Cocaine users often make bad decisions that seem "great" at the time. Most cocaine users eventually will be hurt by bad job performance, damaged personal relations, crime, and unsafe sexual practices. Toxic effects of cocaine can include seizures, hallucinations, delusions, high blood pressure, heart damage, or sudden . There's always the risk of a "bad batch." But heart attacks, brain hemorrhages, or cardiac arrest can occur unpredictably even with "normal" use. Injection of cocaine is risky for abscesses, endocarditis (heart infection) , pneumonia, and AIDS. Withdrawal from cocaine often causes anxiety and drug cravings. Some users become paranoid and psychotic. Many treatment programs are available, but you must make the decision to quit. Medication can be prescribed to control the symptoms of cocaine toxicity (beta blockers or benzodiazepines). Withdrawal symptoms may require tranquilizers. VOMITING: Vomiting (or nausea without vomiting) can be caused by many other different problems. It can mean that something's wrong with the stomach, such as ulcers or inflammation or the intestinal tract, such as appendicitis. But it can also be a symptom of a problem that has nothing to do with the stomach or intestines. Vomiting is common with severe headaches, earaches, tonsillitis, and kidney infections, etc. We see it with pneumonia or heart attacks. Drugs can cause nausea and vomiting. Many abdominal problems cause vomiting; for example, gallstones, kidney stones, pancreatitis, and intestinal obstruction ( blocked bowels). In most cases, curing the vomiting depends on fixing the problem that caused it. For temporary relief, we may use an anti-nausea medicine. For home use, we can prescribe suppositories, chewable pills, pills that dissolve in the mouth, or liquid anti-nausea drugs. If the vomiting seems to be caused by a problem in the stomach, acid-suppressing drugs may be prescribed as well. It's important to avoid dehydration. Sip small amounts of clear liquids ( soft drinks, tea, broth, etc) . Try to take fluids frequently even if you are vomiting to prevent dehydration. Take increasing amounts of fluid and when liquids are being consumed successfully, advance to small amounts of bland food (toast, soups, mashed potatoes, etc.) until you are able to resume a regular diet. Avoid aspirin, tobacco, and alcohol. If the vomiting worsens, if the problem that's making you vomit worsens, or if there's evidence of bleeding in the stomach (such as black, tarry stool, or bloody or black vomit), you should return immediately. Also, return if abdominal pain worsens or becomes localized to one area or you develop high fever. Call your doctor if you aren't improved in 24 hours. ANTINAUSEA MEDICATION: You have been given a medication to suppress nausea and vomiting. This type of medication can be given as a shot, pill, or suppository. It will usually last for many hours. Pills and shots usually last six to eight hours. For the typical illness, only one or two doses of the medication may be necessary. Mild lightheadedness may occur. This type of medicine can cause drowsiness. Do not drive or operate dangerous machinery while under its influence. Do not mix with alcohol. See your doctor at once if you have muscle spasms or tightness, or uncontrollable motions (particularly of the neck, mouth, or jaw). Persistent vomiting or severe lightheadedness should also be evaluated by the physician. FOLLOW-UP CARE: If you have been referred to a physician for follow-up care, call the physician s office for an appointment as you were instructed or within the next two days. If you experience worsening or a significant change in your symptoms, notify the physician immediately or return to the Emergency Department at any time for re-evaluation. Please take the Zofran as needed for nausea and/or vomiting. Please return if you develop worsening abdominal pain accompanied by fever, persistent vomiting, blood in the vomit or any other symptom that is concerning to you. Referrals: ERVIN POWER [employer]ING MACHINE OPERATOR [Primary Care Provider] - Follow up as needed
[2018-07-21 03:51] VITALS: BP 100/76
--- NOTE | 2018-07-21 09:35 | EKG REPORT ---
SEVERITY:- NORMAL ECG - SINUS RHYTHM : Confirmed by: Blossom Coronel MD 21-Jul-2018 09:34:44
== END 2018-07-21 03:51 | disposition home or self-care (01) ==
LOC: ER 23:52
DX: R10.9 Unspecified abdominal pain (principal); T40.5X5A Adverse effect of cocaine, initial encounter; R11.10 Vomiting, unspecified; F12.10 Cannabis abuse, uncomplicated; D72.829 Elevated white blood cell count, unspecified; F17.200 Nicotine dependence, unspecified, uncomplicated; Z88.2 Allergy status to sulfonamides
CPT/HCPCS: 93005; 99284; 36415; 84702; 83690; 84703; 85025; 80053; 81001; 80307; 93010; S0119

== ENCOUNTER 2018-10-10 15:47 | Emergency (ER) | payer SELFPAY ==
[2018-10-10] MEDS ORDERED: IPRATROPIUM/ALBUTEROL 0.5-2.5 MG/3 ML AMPUL NEB ONE (17:59)
[2018-10-10] MEDS ORDERED: PREDNISONE 20 MG TABLET PO ONE (17:59)
--- NOTE | 2018-10-10 17:59 | ER Document Report ---
ED Medical Screen (RME) - General Chief Complaint: Fever Stated Complaint: FEVER, COUGH, VOMITING, DIARRHEA Time Seen by Provider: 10/10/18 17:51 Mode of Arrival: Ambulatory Information source: Patient Notes: Patient is a 33-year-old female who presents emergency department with 3-day history of fever as high as 104, cough, sore throat, vomiting and diarrhea. She reports that her mother had the flu approximately 2 weeks ago. Patient reports that she is otherwise healthy and only takes Adderall daily. Exam: Bronchospasm noted with deep breaths. Otherwise lung [place] are clear. Mildly erythematous tonsils but without swelling or evidence of abscess. I have greeted and performed a rapid initial assessment of this patient. A comprehensive ED assessment and evaluation of the patient, analysis of test results and completion of the medical decision making process will be conducted by additional ED providers. Dictation of this chart was performed using voice recognition software; therefore, there may be some unintended grammatical errors. TRAVEL OUTSIDE OF THE [place] IN LAST 30 DAYS: No - Related Data Allergies/Adverse Reactions: Sulfa (Sulfonamide Antibiotics) Allergy (Intermediate, Verified 10/10/18 15:49) Hives Past Medical History Pulmonary Medical History: Reports: Hx Pneumonia - AN INFANT Renal/ Medical History: Reports: Hx Kidney Stones. Denies: Hx Peritoneal Dialysis Psychiatric Medical History: Reports: Hx Anxiety, Hx Attention Deficit Hyperactivity Disorder, Hx Depression - anxiety, Hx Personality Disorder Past Surgical History: Reports: Hx Section - x2, Hx Oral Surgery - JAW, Hx Orthopedic Surgery - L arm, jaw - Immunizations Immunizations up to date: Yes Hx Diphtheria, Pertussis, Tetanus Vaccination: Yes Physical Exam - Vital signs Vitals: Temp Pulse Resp BP Pulse Ox 98.6 F 101 H 18 138/75 H 97 10/10/18 16:21 10/10/18 16:21 10/10/18 16:21 10/10/18 16:21 10/10/18 16:21 Course - Vital Signs Vital signs: Temp Pulse Resp BP Pulse Ox 98.6 F 101 H 18 138/75 H 97 10/10/18 16:21 10/10/18 16:21 10/10/18 16:21 10/10/18 16:21 10/10/18 16:21 Doctor's Discharge - Discharge Referrals: TONO,ABREE J, TELECOMMUNICATIONS NETWORK PLANNER [Primary Care Provider] - Follow up as needed
[2018-10-10 18:15] LABS: APPEARANCE,URINE SLIGHTLY-CLOUDY; BILIRUBIN,URINE NEGATIVE (NEGATIVE); COLOR,URINE STRAW; GLUCOSE, URINE NEGATIVE (NEGATIVE); KETONES,URINE TRACE mg/dL (NEGATIVE); LEUKOCYTE ESTERASE,URINE SMALL (NEGATIVE); NITRITE,URINE NEGATIVE (NEGATIVE); PROTEIN,URINE NEGATIVE (NEGATIVE); URINE SPECIFIC GRAVITY 1.013; UROBILINOGEN,URINE NEGATIVE mg/dL (<2.0)
[2018-10-10 18:28] LABS: ABSOLUTE LYMPHOCYTES (AUTO) 0.9 10^3/uL (0.5-4.7); ABSOLUTE MONOCYTES (AUTO) 0.6 10^3/uL (0.1-1.4); EOSINOPHILS % (AUTO) 0.1 % (0-6); TOTAL CELLS COUNTED % (AUTO) 100 %
[2018-10-10 18:35] LABS: ABSOLUTE NEUT (AUTO) 4.1 10^3/uL (1.7-8.2); BASOPHILS % (AUTO) 0.3 % (0-2); HEMATOCRIT 35.3 % (36.0-47.0); HEMOGLOBIN 12.1 g/dL (12.0-15.5); LYMPHOCYTES % (AUTO) 15.5 % (13-45); MEAN CORPUSCULAR HEMOGLOBIN 31.1 pg (27.0-33.4); MEAN CORPUSCULAR HGB CONC 34.3 g/dL (32.0-36.0); MEAN CORPUSCULAR VOLUME 91 fl (80-97); MONOCYTES % (AUTO) 10.4 % (3-13); PLATELET COUNT 232 10^3/uL (150-450); RED CELL DISTRIBUTION WIDTH 13.7 % (11.5-14.0); SEGMENTED NEUTROPHILS % (AUTO) 73.7 % (42-78); WHITE BLOOD COUNT 5.5 10^3/uL (4.0-10.5)
[2018-10-10 18:44] LABS: A TYPE INFLUENZA AG NEGATIVE (NEGATIVE); ALANINE AMINOTRANSFERASE 26 U/L (9-52); ALBUMIN 3.6 g/dL (3.5-5.0); ALKALINE PHOSPHATASE 53 U/L (38-126); ANION GAP 8 (5-19); ASPARTATE AMINO TRANSFERASE 36 U/L (14-36); B INFLUENZA AG NEGATIVE (NEGATIVE); BILIRUBIN,DIRECT 0.2 mg/dL (0.0-0.4); BILIRUBIN,TOTAL 0.2 mg/dL (0.2-1.3); BLOOD UREA NITROGEN 6 mg/dL (7-20); CALCIUM 8.8 mg/dL (8.4-10.2); CARBON DIOXIDE 21 mmol/L (22-30); CHLORIDE 103 mmol/L (98-107); GLUCOSE 91 mg/dL (75-110); TOTAL PROTEIN 6.4 g/dL (6.3-8.2)
[2018-10-10] MEDS ORDERED: ACETAMINOPHEN 325 MG TABLET PO ONE (22:10)
[2018-10-10] MEDS ORDERED: IBUPROFEN 600 MG TABLET PO ONE (22:10)
--- NOTE | 2018-10-10 22:22 | ER Document Report ---
ED General - General Chief Complaint: Fever Stated Complaint: FEVER, COUGH, VOMITING, DIARRHEA Time Seen by Provider: 10/10/18 17:51 Mode of Arrival: Ambulatory Notes: 33-year-old female who presents emergency department with 3-day history of fever as high as 104, cough, sore throat, vomiting and diarrhea. She reports that her mother had the flu approximately 2 weeks ago. Patient reports that she is otherwise healthy and only takes Adderal. She complains of fever, denies chills, denies headache or earache, complains of sore throat and laryngitis, complains of cough, complains of shortness of breath, complains of diarrhea 3-4 episodes in the last 2 days, she complains of vomiting 3-4 times. She has not gotten her flu shot this year. TRAVEL OUTSIDE OF THE [place] IN LAST 30 DAYS: No - Related Data Allergies/Adverse Reactions: Sulfa (Sulfonamide Antibiotics) Allergy (Intermediate, Verified 10/10/18 15:49) Hives Past Medical History - General Information source: Patient - Social History Smoking Status: Current Every Day Smoker Family History: None Patient has suicidal ideation: No Patient has homicidal ideation: No Pulmonary Medical History: Reports: Hx Pneumonia - AN Renal/ Medical History: Reports: Hx Kidney Stones. Denies: Hx Peritoneal Dialysis Psychiatric Medical History: Reports: Hx Anxiety, Hx Attention Deficit Hyperactivity Disorder, Hx Depression - anxiety, Hx Personality Disorder Past Surgical History: Reports: Hx Section - x2, Hx Oral Surgery - JAW, Hx Orthopedic Surgery - L arm, jaw - Immunizations Immunizations up to date: Yes Hx Diphtheria, Pertussis, Tetanus Vaccination: Yes Hx Pneumococcal Vaccination: 10/09/00 Review of Systems - Review of Systems Constitutional: See HPI EENT: See HPI Cardiovascular: See HPI Respiratory: No symptoms reported Gastrointestinal: See HPI Genitourinary: No symptoms reported Female Genitourinary: No symptoms reported Musculoskeletal: See HPI Skin: No symptoms reported Hematologic/Lymphatic: No symptoms reported Neurological/Psychological: No symptoms reported Physical Exam - Vital signs Vitals: Temp Pulse Resp BP Pulse Ox 98.6 F 101 H 18 138/75 H 97 10/10/18 16:21 10/10/18 16:21 10/10/18 16:21 10/10/18 16:21 10/10/18 16:21 - Notes Notes: Reviewed vital signs and nursing note as charted by RN. CONSTITUTIONAL: Well-appearing sleeping on the stretcher, well-nourished, acting appropriately for age HEAD: Normocephalic, atraumatic, no swelling EYES: PERRL, Conjunctivae clear, no drainage, EOMI, no scleral icterus ENT: External ears without lesions, External auditory canal is patent, TMs without erythema, landmarks clear and well visualized, no rhinorrhea, Pharynx with with lesion noted at the top of the uvula on the left side where it meets the soft palate that appears to look like a condyloma, no tonsillar hypertrophy, airway patent, mucous membranes pink and moist NECK: Supple, no cervical lymphadenopathy, no masses CARD: Regular rate and rhythm, no murmurs, no rubs, no gallops, capillary refill < 2 seconds, symmetric pulses RESP: The lungs are clear to auscultation bilaterally, no wheezing, no rales, no rhonchi. Respiratory rate and effort are normal, normal chest excursion. No respiratory distress, no retractions, no stridor, no nasal flaring, no accessory muscle use. ABD/GI: Normal bowel sounds, non-distended, soft, non-tender, no rebound, no guarding, no palpable organomegaly EXT: Normal ROM in all joints, non-tender to palpation, no effusions, no edema SKIN: Normal color for age and race, warm, dry, good turgor, no acute lesions noted NEURO: No facial asymmetry, moves all extremities equally, motor and sensory function intact Course - Re-evaluation Re-evalutation: 10/10/18 22:49 33-year-old female presents emergency department for fever at home, sore throat, vomiting, diarrhea. On presentation she is sleeping on the bed. Vital signs reviewed and patient was afebrile and not tachycardic. 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 10/11/18 00:19 Previous visit patient was in similar mental state. Very tired and unclea why. UDS was done in a previous visit which was positive for cocaine. I was concerned that this may possibly be happening again so I ordered a UDS which was actually negative. At this time patient's vital signs are stabl, patient is not tachycardic nor parietal. All lab work was normal. This most likely represents a viral illness. I am going to refer her to ENT to assess the lesion on her uvula patient is stable to discharge home. - Vital Signs Vital signs: Temp Pulse Resp BP Pulse Ox 98.6 F 101 H 18 138/75 H 97 10/10/18 16:21 10/10/18 16:21 10/10/18 16:21 10/10/18 16:21 10/10/18 16:21 - Laboratory Result Diagrams: 10/10/18 18:15 10/10/18 18:15 Laboratory results interpreted by me: 10/10/18 10/10/18 10/10/18 17:42 18:15 18:15 Hct 35.3 L Sodium 132.0 L Carbon Dioxide 21 L BUN 6 L Creatinine 0.47 L Urine Ketones TRACE H Ur Leukocyte Esterase SMALL H Discharge - Discharge Clinical Impression: Viral illness Condition: Good Disposition: HOME, SELF-CARE Instructions: Acetaminophen, Fever ([facility]), Viral Syndrome ([facility]) Additional Instructions: Viral Syndrome The physician has diagnosed a viral infection. Viruses not only cause "colds," but can cause many different symptoms including generalized aching, fever, headache, cough, diarrhea, nausea, vomiting, and fatigue. The treatment, for the most part, is simply relief of symptoms. This means that antibiotics are usually not given. Rest, fluids, pain medications and, occasionally, medication for the specific symptoms that are most bothersome will be prescribed. Use good handwashing to avoid passing the virus to others. Shared toys should be cleaned with disinfectant. Clean the toilets, sinks, and counter surfaces in bathrooms. Launder clothing in hot water. Contact the physician if you develop any new or unusual symptoms such as severe headache, stiff neck, high fever, chest pain, productive cough, or shortness of breath. You should be rechecked if you don't see marked improvement within seven to 10 days. Also, I am concerned about the lesion on your uvula. I am giving you the information for ENT and you can call them this morning to set up an appointment to assess it. Referrals: ERVIN POWER ELECTRIFICATION ADVISER [ALLIED HEALTH PROFESSIONAL] - Follow up as needed ERNIE REYES MD [[facility]] - Follow up as needed
[2018-10-10 23:40] LABS: URINE BARBITURATES SCREEN NEGATIVE; URINE BENZODIAZEPINES SCREEN NEGATIVE; URINE COCAINE SCREEN NEGATIVE; URINE MARIJUANA (THC) SCREEN NEGATIVE; URINE METHADONE SCREEN NEGATIVE; URINE PHENCYCLIDINE SCREEN NEGATIVE
[2018-10-11 00:37] VITALS: BP 92/56
== END 2018-10-11 00:40 | disposition home or self-care (01) ==
LOC: ER 15:47 → EEVIPCON 15:47 → ER 10-11 00:40
DX: B34.9 Viral infection, unspecified (principal); R50.9 Fever, unspecified; R05 Cough; J02.9 Acute pharyngitis, unspecified; R11.10 Vomiting, unspecified; R19.7 Diarrhea, unspecified; F17.200 Nicotine dependence, unspecified, uncomplicated
CPT/HCPCS: 94640; 99283; 36415; 87070; 87880; 85025; 87077; 80053; 81001; 80307; 87804; J7512; J7620

== ENCOUNTER 2018-10-20 11:12 | Emergency (ER) | payer SELFPAY ==
[2018-10-20] MEDS ORDERED: NORMAL SALINE 1000 ML 1,000 ML IV ONE (12:25)
--- NOTE | 2018-10-20 12:26 | ER Document Report ---
ED Medical Screen (RME) - General Chief Complaint: Cold Symptoms Stated Complaint: COUGH Time Seen by Provider: 10/20/18 12:02 Mode of Arrival: Ambulatory Information source: Patient Notes: Patient is an otherwise healthy 33-year-old female who presents with multiple complaints today. Patient reports cough, congestion and fevers as high as 104 at home. She states this is been going on for several weeks. She states she was seen here several weeks ago, discharged home with a viral illness and has gotten worse since then. Patient's heart rate at triage was 128 bpm. Patient currently afebrile. Exam: Lung sounds clear to auscultation bilaterally. Dyspnea noted on exertion. Heart rate 132 manually. Upgraded to [facility] waiting for workup to begin. I have greeted and performed a rapid initial assessment of this patient. A comprehensive ED assessment and evaluation of the patient, analysis of test results and completion of the medical decision making process will be conducted by additional ED providers. Dictation of this chart was performed using voice recognition software; therefore, there may be some unintended grammatical errors. TRAVEL OUTSIDE OF THE [place] IN LAST 30 DAYS: No - Related Data Allergies/Adverse Reactions: Sulfa (Sulfonamide Antibiotics) Allergy (Intermediate, Verified 10/20/18 11:14) Hives Past Medical History Pulmonary Medical History: Reports: Hx Pneumonia - AN Renal/ Medical History: Reports: Hx Kidney Stones. Denies: Hx Peritoneal Dialysis Psychiatric Medical History: Reports: Hx Anxiety, Hx Attention Deficit Hyperactivity Disorder, Hx Depression - anxiety, Hx Personality Disorder Past Surgical History: Reports: Hx Section - x2, Hx Oral Surgery - JAW, Hx Orthopedic Surgery - L arm, jaw - Immunizations Immunizations up to date: Yes Hx Diphtheria, Pertussis, Tetanus Vaccination: Yes Physical Exam - Vital signs Vitals: Temp Pulse Resp BP Pulse Ox 97.6 F 126 H 24 H 138/76 H 95 10/20/18 11:27 10/20/18 11:10/20/18 11:10/20/18 11:10/20/18 11:27 Course - Vital Signs Vital signs: Temp Pulse Resp BP Pulse Ox 97.6 F 126 H 24 H 138/76 H 95 10/20/18 11:27 10/20/18 11:10/20/18 11:27 10/20/18 11:27 10/20/18 11:27 Doctor's Discharge - Discharge Referrals: PUMA LEACH PA-C [Primary Care Provider] - Follow up as needed
[2018-10-20 13:07] LABS: ABSOLUTE LYMPHOCYTES (AUTO) 1.7 10^3/uL (0.5-4.7); ABSOLUTE MONOCYTES (AUTO) 1.1 10^3/uL (0.1-1.4); ABSOLUTE NEUT (AUTO) 14.7 10^3/uL (1.7-8.2); BASOPHILS % (AUTO) 0.2 % (0-2); EOSINOPHILS % (AUTO) 0.2 % (0-6); HEMATOCRIT 34.9 % (36.0-47.0); LYMPHOCYTES % (AUTO) 9.9 % (13-45); MEAN CORPUSCULAR HEMOGLOBIN 31.3 pg (27.0-33.4); MEAN CORPUSCULAR HGB CONC 34.5 g/dL (32.0-36.0); MEAN CORPUSCULAR VOLUME 91 fl (80-97); MONOCYTES % (AUTO) 6.4 % (3-13); PLATELET COUNT 533 10^3/uL (150-450); RED BLOOD COUNT 3.85 10^6/uL (3.72-5.28); RED CELL DISTRIBUTION WIDTH 13.3 % (11.5-14.0); SEGMENTED NEUTROPHILS % (AUTO) 83.3 % (42-78); TOTAL CELLS COUNTED % (AUTO) 100 %; WHITE BLOOD COUNT 17.7 10^3/uL (4.0-10.5)
--- NOTE | 2018-10-20 13:12 | RADIOLOGY REPORT (SQ) ---
EXAM DESCRIPTION: CHEST 2 VIEWS COMPLETED DATE/TIME: 10/20/2018 1:02 pm REASON FOR STUDY: cough, fever COMPARISON: 08/10/2016 EXAM PARAMETERS: NUMBER OF VIEWS: two views TECHNIQUE: Digital Frontal and Lateral radiographic views of the chest acquired. RADIATION DOSE: NA LIMITATIONS: none FINDINGS: LUNGS AND PLEURA: No opacities, masses or pneumothorax. No pleural effusion. MEDIASTINUM AND HILAR STRUCTURES: No masses or contour abnormalities. HEART AND VASCULAR STRUCTURES: Heart normal size. No evidence for failure. BONES: No acute findings. HARDWARE: None in the chest. OTHER: No other significant finding. IMPRESSION: NO ACUTE RADIOGRAPHIC FINDING IN THE CHEST. TECHNICAL DOCUMENTATION: JOB ID: [id number] [employer]- All Rights Reserved Reading location - IP/workstation name: [email or web address]
[2018-10-20] MEDS ORDERED: IPRATROPIUM/ALBUTEROL 0.5-2.5 MG/3 ML AMPUL NEB ONE (13:22)
[2018-10-20] MEDS ORDERED: AZITHROMYCIN INJ 500 MG VIAL IV ONE (13:22)
[2018-10-20] MEDS ORDERED: GUAIFENESIN/CODEINE PHOS 100-10 MG/ 5 ML UDC PO ONE (14:45)
[2018-10-20 14:53] LABS: ALANINE AMINOTRANSFERASE 24 U/L (9-52); ALBUMIN 3.2 g/dL (3.5-5.0); ALKALINE PHOSPHATASE 69 U/L (38-126); ANION GAP 6 (5-19); ASPARTATE AMINO TRANSFERASE 11 U/L (14-36); BILIRUBIN,DIRECT 0.1 mg/dL (0.0-0.4); BILIRUBIN,TOTAL 0.2 mg/dL (0.2-1.3); BLOOD UREA NITROGEN 8 mg/dL (7-20); CALCIUM 8.8 mg/dL (8.4-10.2); CARBON DIOXIDE 21 mmol/L (22-30); CHLORIDE 109 mmol/L (98-107); GLUCOSE 89 mg/dL (75-110); POTASSIUM 4.1 mmol/L (3.6-5.0); SODIUM 136.4 mmol/L (137-145)
[2018-10-20] MEDS ORDERED: PREDNISONE 20 MG TABLET PO ONE (15:59)
--- NOTE | 2018-10-20 16:06 | ER Document Report ---
ED Respiratory Problem - General Chief Complaint: Cold Symptoms Stated Complaint: COUGH Time Seen by Provider: 10/20/18 12:02 Mode of Arrival: Ambulatory Information source: Patient Notes: History of Present Illness Chief Complaint: [cough] Cough quality= [dry], [without] sputum [No] hemoptysis [ 33 years old female returns today saying she is persistently coughing and wheezing in spite of being treated earlier. She was unhappy that nobody gave the antibiotic. Denies any fever chills. Dry cough. Denies any chest pain. Denies any other constitutional symptoms.] History obtained from [patient] Symptoms began: [past few days] Onset: [gradual] Timing: [constant, lasts hours, persists] Intensity: [moderate] Location: [respiratory tract] Radiation: [none] Migration: [none] Aggravating factors: [none] Relieving factors: [none] Review of Systems : All other systems negative as reviewed. CONSTITUTIONAL No Fever. EYES No eye pain. ENT No sore throat CARDIOVASCULAR No chest pain. RESPIRATORY No SOB, No wheezing, No orthopnea, No pedal edema. GI No abdominal pain, no vomiting, no diarrhea. GENITOURINARY No dysuria. SKIN No rash. NEUROLOGIC No headache. MUSCULOSKELETAL No back pain, No calf pain, No calf swelling Physical Exam CONSTITUTIONAL Vital signs reviewed, Patient has normal respiratory rate, Well appearing, Patient appears comfortable, normal stature. HEAD Atraumatic, Normocephalic. EYES Eyes are normal to inspection. ENT Ears normal to inspection, Nose examination normal. NECK No jugular venous distention. RESPIRATORY CHEST Breath sounds [bilateral expiratory wheeze, No respiratory distress. CARDIOVASCULAR RRR, No murmurs, Normal S1 S2, No rub, No gallop. ABDOMEN Abdomen is nontender, No masses, Bowel sounds normal, No distension, No pe ritoneal signs. BACK Normal inspection. UPPER EXTREMITY Inspection normal. LOWER EXTREMITY Inspection normal. NEURO No facial droop, normal speech. SKIN Skin is warm, Skin is dry, Skin is normal color. PSYCHIATRIC Normal affect. TRAVEL OUTSIDE OF THE [place] IN LAST 30 DAYS: No - HPI Notes: Dictated - Related Data Allergies/Adverse Reactions: Sulfa (Sulfonamide Antibiotics) Allergy (Intermediate, Verified 10/20/18 11:14) Hives Past Medical History - General Information source: Patient - Social History Smoking Status: Current Every Day Smoker Frequency of alcohol use: Rare Drug Abuse: None, Bath salts Lives with: Family Family History: None, Reviewed & Not Pertinent Patient has suicidal ideation: No Patient has homicidal ideation: No Pulmonary Medical History: Reports: Hx Pneumonia - AN Renal/ Medical History: Reports: Hx Kidney Stones. Denies: Hx Peritoneal Dialysis Psychiatric Medical History: Reports: Hx Anxiety, Hx Attention Deficit Hyperactivity Disorder, Hx Depression - anxiety, Hx Personality Disorder Past Surgical History: Reports: Hx Section - x2, Hx Oral Surgery - JAW, Hx Orthopedic Surgery - L arm, jaw - Immunizations Immunizations up to date: Yes Hx Diphtheria, Pertussis, Tetanus Vaccination: Yes Hx Pneumococcal Vaccination: 10/09/00 Review of Systems - Review of Systems Notes: Dictated Physical Exam - Vital signs Vitals: Temp Pulse Resp BP Pulse Ox 97.6 F 126 H 24 H 138/76 H 95 10/20/18 11:27 10/20/18 11:27 10/20/18 11:27 10/20/18 11:27 10/20/18 11:27 - Notes Notes: Dictated Course - Re-evaluation Re-evalutation: 10/20/18 16:08 Improved after the treatment. Given IV Zithromax. - Vital Signs Vital signs: Temp Pulse Resp BP Pulse Ox 97.6 F 132 H 24 H 138/76 H 95 10/20/18 11:27 10/20/18 12:29 10/20/18 11:27 10/20/18 11:27 10/20/18 11:27 - Laboratory Result Diagrams: 10/20/18 12:38 10/20/18 14:28 Laboratory results interpreted by me: 10/20/18 10/20/18 12:38 14:28 WBC 17.7 H Hct 34.9 L Plt Count 533 H Seg Neutrophils % 83.3 H Lymphocytes % 9.9 L Absolute Neutrophils 14.7 H Sodium 136.4 L Chloride 109 H Carbon Dioxide 21 L Creatinine 0.47 L AST 11 L Total Protein 6.0 L Albumin 3.2 L Discharge - Discharge Clinical Impression: Asthmatic bronchitis Qualifiers: Asthma severity: moderate Asthma persistence: persistent Asthma complication type: with acute exacerbation Qualified Code(s): J45.41 - Moderate persistent asthma with (acute) exacerbation Leukocytosis Qualifiers: Leukocytosis type: other Qualified Code(s): D72.828 - Other elevated white blood cell count Condition: Fair Disposition: HOME, SELF-CARE Instructions: Bronchitis With Bronchospasm (Wheezing) ([facility]) Prescriptions: Albuterol Sulfate [Proair Hfa Inhalation Aerosol 8.5 gm Mdi] 1 puff IH Q4 PRN #1 mdi PRN Reason: Azithromycin [Zithromax Tri-Navin] 500 mg PO DAILY #1 pkg Guaifenesin/Codeine Phos [Robitussin-AC Syrup 59 ml] 5 ml PO QIDP PRN #90 ml PRN Reason: Prednisone 10 mg PO ASDIR PRN 6 Days #1 tab.[id number] PRN Reason: Referrals: PUMA LEACH PA-C [Primary Care Provider] - Follow up as needed
[2018-10-20 16:33] VITALS: BP 95/63
== END 2018-10-20 16:47 | disposition home or self-care (01) ==
LOC: ER 11:12
DX: J45.41 Moderate persistent asthma with (acute) exacerbation (principal); D72.828 Other elevated white blood cell count; R05 Cough; F17.200 Nicotine dependence, unspecified, uncomplicated
CPT/HCPCS: 36415; 85025; 80053; 71046; J7512; J7030; J0456; J7620

== ENCOUNTER 2018-10-30 19:01 | Emergency (ER) | payer SELFPAY ==
[2018-10-30] MEDS ORDERED: EPINEPHRINE INJ/PF 1 MG/1 ML AMPULE ONE (19:05)
[2018-10-30] MEDS ORDERED: DIPHENHYDRAMINE HCL 50 MG/ML VIAL IV ONE (19:09)
[2018-10-30] MEDS ORDERED: FAMOTIDINE INJ/PF 20 MG/2 ML SDV IV ONE (19:10)
[2018-10-30] MEDS ORDERED: METHYLPREDNISOLONE INJ 125 MG/2 ML SDV IV ONE (19:10)
[2018-10-30] MEDS ORDERED: MAGNESIUM SULFATE/D5W 1 GM/100 ML RTUPB IV ONE (19:11)
[2018-10-30] MEDS ORDERED: NORMAL SALINE 1000 ML 1,000 ML IV ONE (19:11)
--- NOTE | 2018-10-30 19:15 | ER Document Report ---
ED Medical Screen (RME) - General Chief Complaint: Allergic Reaction Stated Complaint: POSSIBLE ALLERGIC REACTION/RASH Time Seen by Provider: 10/30/18 19:09 Primary Care Provider: PUMA LEACH PA-C [Primary Care Provider] - Follow up as needed Mode of Arrival: Ambulatory Information source: Patient Notes: This is a 33-year-old female she is 4 para 2, 14 weeks who presents to the emergency room complaining of acute allergic reaction. Patient states that she was walking in her house 9 PM last night (almost 24 hours ago) when she got a bite underneath the right armpit. She saw the bug and had the bite. 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 She did take Benadryl at home. The redness and itching persisted today. She presents with hives. Her airway is clear at this time. Her lungs are clear at this time. Patient's abdomen is soft. Epinephrine held due to the (airway seems intact, lungs are clear, blood pressure good). IV Benadryl, IV Pepcid, IV Solu-Medrol, and IV magnesium to be given. TRAVEL OUTSIDE OF THE [place] IN LAST 30 DAYS: No - Related Data Allergies/Adverse Reactions: Sulfa (Sulfonamide Antibiotics) Allergy (Intermediate, Verified 10/30/18 19:02) Hives Past Medical History Pulmonary Medical History: Reports: Hx Pneumonia - AN Renal/ Medical History: Reports: Hx Kidney Stones. Denies: Hx Peritoneal Dialysis Psychiatric Medical History: Reports: Hx Anxiety, Hx Attention Deficit Hyperactivity Disorder, Hx Depression - anxiety, Hx Personality Disorder Past Surgical History: Reports: Hx Section - x2, Hx Oral Surgery - JAW, Hx Orthopedic Surgery - L arm, jaw - Immunizations Immunizations up to date: Yes Hx Diphtheria, Pertussis, Tetanus Vaccination: Yes Physical Exam - Vital signs Vitals: Temp Pulse Resp BP Pulse Ox 98.2 F 110 H 22 H 120/90 H 100 10/30/18 19:06 10/30/18 19:06 10/30/18 19:06 10/30/18 19:06 10/30/18 19:06 Course - Vital Signs Vital signs: Temp Pulse Resp BP Pulse Ox 98.2 F 110 H 22 H 120/90 H 100 10/30/18 19:06 10/30/18 19:06 10/30/18 19:06 10/30/18 19:06 10/30/18 19:06 Doctor's Discharge - Discharge Referrals: PUMA LEACH PA-C [Primary Care Provider] - Follow up as needed
[2018-10-30] MEDS ORDERED: EPINEPHRINE INJ 1 MG/10 ML DISP.SYRIN ONE (20:25)
[2018-10-30] MEDS ORDERED: EPINEPHRINE INJ/PF 1 MG/1 ML AMPULE IM ONE (20:26)
--- NOTE | 2018-10-30 20:42 | ER Document Report ---
ED General - General Chief Complaint: Allergic Reaction Stated Complaint: POSSIBLE ALLERGIC REACTION/RASH Time Seen by Provider: 10/30/18 19:09 Primary Care Provider: PUMA LECAH PA-C [Primary Care Provider] - Follow up in 3-5 days Mode of Arrival: Ambulatory Information source: Patient, [facility] Records Notes: This is a 33-year-old female with ADHD, depression, personality disorder, history of substance abuse who is currently 4 para 2, 14 weeks who presents to the emergency room complaining of acute allergic reaction. Patient states that she was walking in her house 9 PM last night (almost 24 hours ago) when she got a bite underneath the right armpit. She saw the bug and had the bite. 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 She did take Benadryl at home. The redness and itching persisted today. Patient denies abdominal pain, vaginal bleeding, shortness of breath. TRAVEL OUTSIDE OF THE [place] IN LAST 30 DAYS: No - HPI Onset: Yesterday Onset/Duration: Sudden Quality of pain: Burning Severity: Moderate Associated symptoms: Other - Pruritic rash. denies: Chest pain, Nonproductive cough, Productive cough, Fever, Headache, Leg swelling, Nausea, Vomiting, Shortness of breath Exacerbated by: Denies Relieved by: Denies Similar symptoms previously: Yes Recently seen / treated by doctor: No - Related Data Allergies/Adverse Reactions: Sulfa (Sulfonamide Antibiotics) Allergy (Intermediate, Verified 10/30/18 19:02) Hives Past Medical History - General Information source: Patient - Social History Smoking Status: Current Some Day Smoker Frequency of alcohol use: None Drug Abuse: None Family History: None, Reviewed & Not Pertinent Patient has suicidal ideation: No Patient has homicidal ideation: No Pulmonary Medical History: Reports: Hx Bronchitis, Hx Pneumonia - AN Renal/ Medical History: Reports: Hx Kidney Stones. Denies: Hx Peritoneal Dialysis Psychiatric Medical History: Reports: Hx Anxiety, Hx Attention Deficit Hyperactivity Disorder, Hx Depression - anxiety, Hx Personality Disorder Past Surgical History: Reports: Hx Section - x2, Hx Oral Surgery - JAW, Hx Orthopedic Surgery - L arm, jaw - Immunizations Immunizations up to date: Yes Hx Diphtheria, Pertussis, Tetanus Vaccination: Yes Hx Pneumococcal Vaccination: 10/09/00 Review of Systems - Review of Systems Notes: REVIEW OF SYSTEMS: CONSTITUTIONAL : Denies fever, chills, or sweats. Denies recent illness. Denies weight loss, recent hospitalizations. EENT: Denies visual changes, eye pain. Denies sore throat, oral lesions, difficulty swallowing. CARDIOVASCULAR: Denies chest pain. Denies palpitations. Denies lower extremity edema. RESPIRATORY: Denies cough. Denies shortness of breath, wheezing. GASTROINTESTINAL: Denies abdominal pain or distention. Denies nausea, vomiting, or diarrhea. Denies blood in vomitus, stools, or per rectum. Denies black, tarry stools. Denies constipation. GENITOURINARY: Denies difficulty urinating, painful urination, frequency, blood in urine, or vaginal discharge. MUSCULOSKELETAL: Denies back or neck pain or stiffness. Denies joint pain or swelling. SKIN: + Urticaria, pruritic rash HEMATOLOGIC : Denies easy bruising or bleeding. LYMPHATIC: Denies swollen glands. NEUROLOGICAL: Denies confusion or altered mental status. Denies loss of c onsciousness. Denies dizziness or lightheadedness. Denies headache. Denies weakness or paralysis. Denies problems difficulty with ambulation, slurred speech. Denies sensory loss, numbness, or tingling. Denies seizures. PSYCHIATRIC: Denies anxiety or stress. Denies depression, suicidal ideation, or homicidal ideation. Denies visual or auditory hallucinations. Physical Exam - Vital signs Vitals: Temp Pulse Resp BP Pulse Ox 98.2 F 110 H 22 H 120/90 H 100 10/30/18 19:06 10/30/18 19:06 10/30/18 19:06 10/30/18 19:06 10/30/18 19:06 - Notes Notes: PHYSICAL EXAMINATION: GENERAL: Fidgeting, will not remain still, laying in the bed naked. Difficult to direct. HEAD: Atraumatic, normocephalic. EYES: Pupils equal round and reactive to light, extraocular movements intact, conjunctiva are normal. ENT: Nares patent, oropharynx clear without exudates. Moist mucous membranes. NECK: Normal range of motion, supple without lymphadenopathy LUNGS: Breath sounds clear to auscultation bilaterally and equal. No wheezes rales or rhonchi. HEART: Regular rate and rhythm without murmurs ABDOMEN: Soft, nontender, nondistended abdomen. No guarding, no rebound. No masses appreciated. Female : deferred Musculoskeletal: Normal range of motion, no pitting or edema. No cyanosis. NEUROLOGICAL: Cranial nerves grossly intact. Normal speech, normal gait. Normal sensory, motor exams PSYCH: Fidgeting, hard to direct, denies suicidal, homicidal ideation. SKIN: Diffuse urticarial rash on the patient's chest, back, torso and upper and lower extremities. Course - Re-evaluation Re-evalutation: 10/30/18 21:38 33-year-old female presents with complaint of pruritic rash that developed yesterday after being bit by a bug. Patient states that she attempted to remove the stinger from her right breast but was not able to get it fully. She states that the rash worsened this afternoon. Patient did receive Benadryl, Solu- Medrol and Pepcid during her ED course. Stinger was removed from the right breast with a 25-gauge needle. On reevaluation patient reports improvement of her burning, itching skin. 10/30/18 21:45 Patient reevaluated and she states she is feeling much better. Patient was evaluated and treated as appropriate for the patient's presenting symptoms and complaint, with consideration of any critical or life threatening conditions that may be associated with their obtained history and exam as noted above. All results were discussed with patient. Patient provided the opportunity to ask questions, and express concerns. Patient was educated on treatments based on their presumed diagnosis as noted above. At this time we will discharge the patient with return precautions and follow-up recommendations. Verbal discharge instructions given a the bedside. Medication warnings reviewed. Patient is in agreement with this plan and has verbalized understanding of return precautions. After careful consideration I feel that that patient can be safely discharged from the emergency department, they were advised to followup with a primary care physician in 2-3 days. Dictation on this chart was performed using voice recognition software and may result in unintended grammatical, spelling, syntax or errors. 10/31/18 03:34 - Vital Signs Vital signs: Temp Pulse Resp BP Pulse Ox 97.9 F 103 H 20 121/67 99 10/30/18 22:05 10/30/18 22:05 10/30/18 22:05 10/30/18 22:05 10/30/18 22:05 Discharge - Discharge Clinical Impression: Allergic reaction to bee sting, Urticarial rash Qualifiers: Weeks of gestation: 14 weeks Qualified Code(s): Z3A.14 - 14 weeks gestation of Condition: Good Disposition: HOME, SELF-CARE Instructions: Acute Allergic Reaction ([facility]), Acute Urticaria ([facility]) Additional Instructions: Take Benadryl as needed for rash, itching. Follow up with your [id number] hours for further care or return to the ED IMMEDIATELY if symptoms worsen or you have any concerns. If you cannot afford to follow up with your primary care physician a list of low cost clinics have been provided at the end of your discharge papers as well. Most prescribed medications have multiple side effects. The safest thing to do is when filling your prescription speak to your pharmacist regarding possible interactions with your normal home medications and over the counter medications such as Ibuprofen, Tylenol, Benadryl. If you experience any symptoms that cause you discomfort or concern you should discontinue the medication immediately and return to the emergency room or call your primary care physician. Prescriptions: Famotidine [Pepcid 40 mg Tablet] 40 mg PO DAILY #7 tablet Referrals: PUMA LEACH PA-C [Primary Care Provider] - Follow up in 3-5 days
[2018-10-30 22:06] VITALS: BP 121/67
== END 2018-10-30 22:06 | disposition home or self-care (01) ==
LOC: ER 19:01
DX: O9A.212 Injury, poisoning and certain other consequences of external causes complicating pregnancy, second trimester (principal); T63.441A Toxic effect of venom of bees, accidental (unintentional), initial encounter; L50.9 Urticaria, unspecified; Y92.009 Unspecified place in unspecified non-institutional (private) residence as the place of occurrence of the external cause; O99.332 Smoking (tobacco) complicating pregnancy, second trimester; Z3A.14 14 weeks gestation of pregnancy; Z88.2 Allergy status to sulfonamides
CPT/HCPCS: 99282; 96375; 96365; 96366; J1200; J2930; J3475; J7030; S0028

== ENCOUNTER 2020-01-09 05:26 | Emergency (ER) | payer SELFPAY ==
[2020-01-09] MEDS ORDERED: NORMAL SALINE 1000 ML 1,000 ML IV ONE (05:37)
[2020-01-09] MEDS ORDERED: PROMETHAZINE HCL INJ 50 MG/1 ML VIAL IM ONE (05:37)
[2020-01-09] MEDS ORDERED: PROMETHAZINE HCL INJ 25 MG/1 ML VIAL ONE (05:38)
--- NOTE | 2020-01-09 05:40 | ER Document Report ---
ED Medical Screen (RME) - General Chief Complaint: Abdominal Pain Stated Complaint: VOMITING Time Seen by Provider: 01/09/20 05:37 Primary Care Provider: PUMA LEACH PA-C [Primary Care Provider] - Follow up as needed Notes: 34-year-old female comes by EMS for chief complaint of repeated vomiting and generalized abdominal pain that started last night around 1 AM. She denies hematemesis or abnormal bowel movements, denies any sick contacts or fevers, denies vaginal bleeding or discharge. Denies other locations of pain. Denies history of the same. Denies any abdominal surgeries or daily prescriptions. Denies recreational drugs or alcohol. TRAVEL OUTSIDE OF THE [place] IN LAST 30 DAYS: No - Related Data Allergies/Adverse Reactions: Sulfa (Sulfonamide Antibiotics) Allergy (Intermediate, Verified 01/09/20 05:33) Hives Past Medical History Pulmonary Medical History: Reports: Hx Bronchitis, Hx Pneumonia - AN Renal/ Medical History: Reports: Hx Kidney Stones. Denies: Hx Peritoneal Dialysis Psychiatric Medical History: Reports: Hx Anxiety, Hx Attention Deficit Hyperactivity Disorder, Hx Depression - anxiety, Hx Personality Disorder Past Surgical History: Reports: Hx Section - x2, Hx Oral Surgery - JAW, Hx Orthopedic Surgery - L arm, jaw - Immunizations Immunizations up to date: Yes Hx Diphtheria, Pertussis, Tetanus Vaccination: Yes Physical Exam - General General appearance: Other - Patient restless but cooperative. She did vomit a small amount with large amount of vocalization - Abdominal Tenderness: Tender - Minimal generalized tenderness, abdomen is actually quite soft, there is no guarding or rigidity Course - Re-evaluation Re-evalutation: We have no IV access yet, she will be medicated with IM Phenergan while we are placing IV for IV fluids, work-up pending. Vital signs unremarkable without tachycardia. I have greeted and performed a rapid initial assessment of this patient. A comprehensive ED assessment and evaluation of the patient, analysis of test results and completion of the medical decision making process will be conducted by additional ED providers. Doctor's Discharge - Discharge Referrals: UPMA LEACH PA-C [Primary Care Provider] - Follow up as needed
[2020-01-09 06:12] LABS: ABSOLUTE BASOPHILS # (AUTO) 0.1 10^3/uL (0.0-0.2); ABSOLUTE LYMPHOCYTES (AUTO) 1.7 10^3/uL (0.5-4.7); ABSOLUTE MONOCYTES (AUTO) 0.7 10^3/uL (0.1-1.4); ABSOLUTE NEUT (AUTO) 7.9 10^3/uL (1.7-8.2); BASOPHILS % (AUTO) 0.5 % (0-2); EOSINOPHILS % (AUTO) 0.2 % (0-6); HEMATOCRIT 46.2 % (36.0-47.0); LYMPHOCYTES % (AUTO) 16.8 % (13-45); MEAN CORPUSCULAR HEMOGLOBIN 30.8 pg (27.0-33.4); MEAN CORPUSCULAR HGB CONC 34.5 g/dL (32.0-36.0); MEAN CORPUSCULAR VOLUME 89 fl (80-97); MONOCYTES % (AUTO) 6.6 % (3-13); PLATELET COUNT 374 10^3/uL (150-450); RED BLOOD COUNT 5.18 10^6/uL (3.72-5.28); RED CELL DISTRIBUTION WIDTH 14.5 % (11.5-14.0); SEGMENTED NEUTROPHILS % (AUTO) 75.9 % (42-78); TOTAL CELLS COUNTED % (AUTO) 100 %; WHITE BLOOD COUNT 10.4 10^3/uL (4.0-10.5)
[2020-01-09 06:27] LABS: ALBUMIN 4.6 g/dL (3.5-5.0); ALKALINE PHOSPHATASE 75 U/L (38-126); ANION GAP 10 (5-19); ASPARTATE AMINO TRANSFERASE 21 U/L (14-36); BILIRUBIN,DIRECT 0.1 mg/dL (0.0-0.4); BILIRUBIN,TOTAL 0.6 mg/dL (0.2-1.3); BLOOD UREA NITROGEN 18 mg/dL (7-20); CALCIUM 10.1 mg/dL (8.4-10.2); CARBON DIOXIDE 23 mmol/L (22-30); CHLORIDE 104 mmol/L (98-107); GLUCOSE 118 mg/dL (75-110); POTASSIUM 3.7 mmol/L (3.6-5.0); TOTAL PROTEIN 8.5 g/dL (6.3-8.2)
--- NOTE | 2020-01-09 06:27 | ER Document Report ---
ED General - General Chief Complaint: Abdominal Pain Stated Complaint: VOMITING Time Seen by Provider: 01/09/20 05:37 Primary Care Provider: PUMA LEACH PA-C [Primary Care Provider] - Follow up as needed Mode of Arrival: Ambulatory Information source: Patient, [facility] TRAVEL OUTSIDE OF THE [place] IN LAST 30 DAYS: No - HPI Onset: This morning Onset/Duration: Sudden Quality of pain: Throbbing Severity: Moderate Pain Level: 3 Context: Patient is a 34-year-old female presenting to the emergency department chief complaint of abdominal pain nausea and vomiting. Patient states it started 4 to 5 hours ago pain is to the lower abdomen. Patient states her last menstrual period was December 19. Patient denies travel history trauma history or obvious sick contacts. At time of evaluation patient is behaving strangely answering questions and conflicting herself sometimes saying yes and then immediately contradicting and saying no. Patient was brought in by EMS received Zofran ODT in the emergency department IV access was obtained prior to that patient was given 25 mg Phenergan IM. Associated symptoms: Nausea, Vomiting, Slow to respond Exacerbated by: Movement Relieved by: Denies Similar symptoms previously: Yes Recently seen / treated by doctor: No - Related Data Allergies/Adverse Reactions: Sulfa (Sulfonamide Antibiotics) Allergy (Intermediate, Verified 01/09/20 05:33) Hives Past Medical History - General Information source: Patient, Emergency [facility], [facility] Records - Social History Smoking Status: Current Some Day Smoker Cigarette use (# per day): Yes Chew tobacco use (# tins/day): No Smoking Education Provided: Yes Drug Abuse: None Family History: None, Reviewed & Not Pertinent Patient has suicidal ideation: No Patient has homicidal ideation: No Pulmonary Medical History: Reports: Hx Bronchitis, Hx Pneumonia - AN Renal/ Medical History: Reports: Hx Kidney Stones. Denies: Hx Peritoneal Dialysis Psychiatric Medical History: Reports: Hx Anxiety, Hx Attention Deficit Hyperactivity Disorder, Hx Depression - anxiety, Hx Personality Disorder Past Surgical History: Reports: Hx Section - x2, Hx Oral Surgery - JAW, Hx Orthopedic Surgery - L arm, jaw - Immunizations Immunizations up to date: Yes Hx Diphtheria, Pertussis, Tetanus Vaccination: Yes Hx Pneumococcal Vaccination: 10/09/00 Review of Systems - Review of Systems Notes: Review of systems is questionable secondary to patient's behavior. Constitutional: No symptoms reported EENT: No symptoms reported Cardiovascular: No symptoms reported Respiratory: No symptoms reported Gastrointestinal: See HPI Genitourinary: No symptoms reported Female Genitourinary: No symptoms reported Musculoskeletal: No symptoms reported Skin: No symptoms reported Hematologic/Lymphatic: No symptoms reported Neurological/Psychological: No symptoms reported -: Yes All other systems reviewed and negative Physical Exam - Vital signs Vitals: Temp Pulse Resp BP Pulse Ox 98.1 F 74 22 H 130/92 H 100 01/09/20 05:35 01/09/20 05:35 01/09/20 05:35 01/09/20 05:35 01/09/20 05:35 - Notes Notes: PHYSICAL EXAMINATION: GENERAL: Well-appearing, well-nourished and in no acute distress. HEAD: Atraumatic, normocephalic. EYES: Pupils equal round and reactive to light, extraocular movements intact, sclera anicteric, conjunctiva are normal. ENT: nares patent, oropharynx clear without exudates. Moist mucous membranes. NECK: Normal range of motion, supple without lymphadenopathy, no appreciable JVD LUNGS: Lungs clear to auscultation bilaterally and equal. No wheezes rales or rhonchi. HEART: Regular rate and rhythm without murmurs ABDOMEN: Soft, however patient is complaining of severe pain to the lower abdomen sensitive everywhere else patient is actively guarding EXTREMITIES: Active full range of motion, no pitting or edema. No cyanosis. 2+ pulses x4 NEUROLOGICAL: No focal neurological deficits. Moves all extremities spontaneously and on command. Patient appears histrionic SKIN: Warm, Dry, and intact. Normal turgor, no rashes or lesions noted. Course - Re-evaluation Re-evalutation: 01/09/20 10:33 Patient has been reevaluated several times while in the emergency department. Patient has remained stable without decompensation. After review of applicable laboratory and/or radiologic results, there are no signs of acute abdomen to include: acute appendicitis, pancreatitis, cholelithiasis or cholecystitis, bowel obstruction or ileus, there are no signs of Aortic Dissection, diverticulitis or diverticulosis, Kidney abnormalities to include urinary tract infection, renal failure or kidney stones. 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 I have reviewed the laboratory and/or radiologic results with the patient answered all questions. Patient is agreeable with discharge at this time. Patient is recommended to follow-up with primary care provider in the next several days for follow-up. Patient should return to the emergency department for worsening symptoms to include worsening pain, bloody vomitus, bloody diarrhea, inability to tolerate fluids or fever greater than 101 orally. - Vital Signs Vital signs: Temp Pulse Resp BP Pulse Ox 98.1 F 74 22 H 122/109 H 100 01/09/20 05:35 01/09/20 05:35 01/09/20 05:35 01/09/20 10:00 01/09/20 10:01 - Laboratory Result Diagrams: 01/09/20 05:59 01/09/20 05:59 Laboratory results interpreted by me: 01/09/20 01/09/20 01/09/20 05:59 05:59 08:30 Hgb 16.0 H RDW 14.5 H Sodium 136.5 L Glucose 118 H Total Protein 8.5 H Urine Ketones 20 H Ur Leukocyte Esterase TRACE H - Diagnostic Test Radiology reviewed: Reports reviewed Discharge - Discharge Clinical Impression: Abdominal pain Qualifiers: Abdominal location: lower abdomen, unspecified Qualified Code(s): R10.30 - Lower abdominal pain, unspecified Condition: Stable Disposition: HOME, SELF-CARE Instructions: Abdominal Pain ([facility]) Referrals: PUMA LEACH PA-C [Primary Care Provider] - Follow up as needed
[2020-01-09] MEDS ORDERED: MORPHINE SULFATE 10 MG/ML INJ IV ONE (06:53)
[2020-01-09] MEDS ORDERED: PROCHLORPERAZINE EDISYLATE INJ 10 MG/2 ML VIAL IV ONE (07:00)
--- NOTE | 2020-01-09 08:01 | RADIOLOGY REPORT (SQ) ---
CLINICAL HISTORY: diff abd pain COMPARISON: None. TECHNIQUE: CT ABDOMEN PELVIS WITH IV CONTRAST on 01/09/2020 6:33 AM CDT This exam was performed according to our departmental dose-optimization program, which includes automated exposure control, adjustment of the mA and/or kV according to patient size and/or use of iterative reconstruction technique. FINDINGS: Lower lungs are clear. Abdomen: The liver is normal in appearance. There is no biliary dilatation. Gallbladder is normal in appearance. The pancreas and spleen are normal in appearance. The adrenal glands and kidneys are unremarkable. Abdominal aorta is normal in course and caliber without aneurysm. There is no free air. There is no retroperitoneal adenopathy. Pelvis: There is no bowel obstruction. Urinary bladder is unremarkable. There is no free fluid. Uterus is normal in size. Appendix is normal. Skeleton: There are no acute osseous findings. No suspicious bony lesions. IMPRESSION: No acute process.
[2020-01-09 08:45] LABS: APPEARANCE,URINE CLOUDY; BILIRUBIN,URINE NEGATIVE (NEGATIVE); COLOR,URINE YELLOW; GLUCOSE, URINE NEGATIVE (NEGATIVE); KETONES,URINE 20 mg/dL (NEGATIVE); LEUKOCYTE ESTERASE,URINE TRACE (NEGATIVE); NITRITE,URINE NEGATIVE (NEGATIVE); PROTEIN,URINE NEGATIVE (NEGATIVE); UROBILINOGEN,URINE NEGATIVE mg/dL (<2.0)
[2020-01-09 09:03] LABS: URINE BARBITURATES SCREEN NEGATIVE; URINE BENZODIAZEPINES SCREEN NEGATIVE; URINE COCAINE SCREEN NEGATIVE; URINE MARIJUANA (THC) SCREEN NEGATIVE; URINE METHADONE SCREEN NEGATIVE; URINE PHENCYCLIDINE SCREEN NEGATIVE
[2020-01-09 09:04] LABS: URINE SPECIFIC GRAVITY > 1.060
[2020-01-09 10:21] VITALS: BP 122/109
== END 2020-01-09 10:58 | disposition home or self-care (01) ==
LOC: ER 05:26
DX: R10.30 Lower abdominal pain, unspecified (principal); R11.2 Nausea with vomiting, unspecified; Z88.2 Allergy status to sulfonamides; F17.210 Nicotine dependence, cigarettes, uncomplicated
CPT/HCPCS: 99284; 96361; 96374; 96375; 36415; 83690; 84703; 85025; 80053; 81001; 80307; 74177; J2270; J0780; J2550; J7030

== ENCOUNTER 2020-01-22 11:33 | Emergency (ER) | payer MEDICAID ==
--- NOTE | 2020-01-22 11:56 | ER Document Report ---
ED General - General Chief Complaint: Abdominal Pain Stated Complaint: ABDOMINAL PAIN Time Seen by Provider: 01/22/20 11:46 Primary Care Provider: DAIN PAGAN MD [ACTIVE STAFF] - Follow up as needed BROOKLYNN MCKENZIE MD [ACTIVE STAFF] - Follow up as needed PUMA LEACH PA-C [PHYSICIAN BUILDINGS AND GROUNDS DIRECTOR] - Follow up as needed Mode of Arrival: Ambulatory Information source: Patient TRAVEL OUTSIDE OF THE [place] IN LAST 30 DAYS: No - HPI Onset: Other - over the last several weeks Onset/Duration: Gradual Quality of pain: Burning, Sharp Severity: Severe Pain Level: 5 Associated symptoms: Nausea, Other - loss of appetite, weight loss Exacerbated by: Food - anything other than very bland food Relieved by: Denies Similar symptoms previously: Yes - over thr last several weeks Recently seen / treated by doctor: Yes - seen in this ER for the same on 01/09/20 Notes: 34 year old female with a history of Anxiety, Depression, ADHD, Kidney Stones here in the ER for epigastric abdominal pain with mild nausea, loss of appetite, and unintentional weight loss. The patient was seen in this ER on 01/09/20 and had lab work and a CT abd/pelv showing no acute process. The patient has not followed up with anyone as an outpatient. The patient has not tried over the counter anti-acid medications. - Related Data Allergies/Adverse Reactions: Sulfa (Sulfonamide Antibiotics) Allergy (Intermediate, Verified 01/22/20 11:51) Hives Past Medical History - General Information source: Patient - Social History Smoking Status: Never Smoker Chew tobacco use (# tins/day): No Frequency of alcohol use: None Drug Abuse: None Family History: None, Reviewed & Not Pertinent Patient has suicidal ideation: No Patient has homicidal ideation: No Pulmonary Medical History: Reports: Hx Bronchitis, Hx Pneumonia - AN Renal/ Medical History: Reports: Hx Kidney Stones. Denies: Hx Peritoneal Dialysis Psychiatric Medical History: Reports: Hx Anxiety, Hx Attention Deficit Hyperactivity Disorder, Hx Depression - anxiety, Hx Personality Disorder Past Surgical History: Reports: Hx Section - x2, Hx Oral Surgery - JAW, Hx Orthopedic Surgery - L arm, jaw - Immunizations Immunizations up to date: Yes Hx Diphtheria, Pertussis, Tetanus Vaccination: Yes Hx Pneumococcal Vaccination: 10/09/00 Review of Systems - Review of Systems Constitutional: Weight loss EENT: No symptoms reported Cardiovascular: No symptoms reported Respiratory: No symptoms reported Gastrointestinal: Abdominal pain, Nausea Genitourinary: No symptoms reported Female Genitourinary: No symptoms reported Musculoskeletal: No symptoms reported Skin: No symptoms reported Hematologic/Lymphatic: No symptoms reported Neurological/Psychological: No symptoms reported -: Yes All other systems reviewed and negative Physical Exam - Vital signs Vitals: Temp Pulse Resp BP Pulse Ox 97.5 F 104 H 24 H 148/111 H 100 01/22/20 11:37 01/22/20 11:37 01/22/20 11:37 01/22/20 11:37 01/22/20 11:37 - Notes Notes: GENERAL: Wwell-nourished, poorly groomed, in mild distress due to her abdominal pain. HEAD: Atraumatic, normocephalic. EYES: Pupils equal round and reactive to light, extraocular movements intact, sclera anicteric, conjunctiva are normal. ENT: External ears normal in appearance, nares patent, oropharynx clear without exudates. Moist mucous membranes. NECK: Normal range of motion, supple without lymphadenopathy or JVD. LUNGS: Breath sounds clear to auscultation bilaterally and equal. No wheezes rales or rhonchi. HEART: Regular rate and rhythm without murmurs, rubs or gallops. ABDOMEN: Soft, mild tenderness in epigastric area, mild tenderness in RUQ, normoactive bowel sounds. No guarding, no rebound. No masses appreciated. EXTREMITIES: Normal range of motion, no pitting or edema. No clubbing or cyanosis. NEUROLOGICAL: Cranial nerves II through XII grossly intact. Normal speech, normal gait. PSYCH: Normal mood, normal affect. SKIN: Warm, Dry, normal turgor, no rashes or lesions noted. Course - Re-evaluation Re-evalutation: 01/22/20 14:10 The patient is here for epigastric pain and some RUQ abdominal pain which is made worse with eating. She felt much better after treatment with a GI Cocktail, Protonix, and Carafate. Patient likely has GERD or an Ulcer. Patient DCed with instructions to use a PPI, Tums, Maalox, H2 Sobia and to follow up with a GI Doctor. The patient had blood work today which was unremarkable but her UA was consistent with a possible UTI and she says she has some urinary hesitancy. Will treat with course of Keflex and culture urine. The patient had a CT Abd/Pelv on 01/09/20 which was unremarkable. - Vital Signs Vital signs: Temp Pulse Resp BP Pulse Ox 97.9 F 73 16 133/97 H 99 01/22/20 13:56 01/22/20 13:56 01/22/20 13:56 01/22/20 13:56 01/22/20 13:56 - Laboratory Result Diagrams: 01/22/20 12:10 01/22/20 12:10 Laboratory results interpreted by me: 01/22/20 01/22/20 12:10 12:20 Potassium 3.5 L Urine Protein 30 H Ur Leukocyte Esterase MODERATE H Discharge - Discharge Clinical Impression: Epigastric abdominal pain Gastro-esophageal reflux Qualifiers: Esophagitis presence: without esophagitis Qualified Code(s): K21.9 - Gastro- esophageal reflux disease without esophagitis UTI (urinary tract infection) Qualifiers: Urinary tract infection type: site unspecified Hematuria presence: with hematuria Qualified Code(s): N39.0 - Urinary tract infection, site not specified Condition: Stable Disposition: HOME, SELF-CARE Instructions: Abdominal Pain ([facility]), Reflux Disease (GERD) ([facility]), Urinary Tract Infection ([facility]) Additional Instructions: Use an over the counter PPI (proton pump inhibitor) and take it twice a day (20mg tablet). Also use tums, maalox, and zantac for immediate relief. Follow up with a GI Doctor (two are listed in your paperwork) if symptoms persist for a possible endoscopy. Take the antibiotic as prescribed for a UTI. Prescriptions: Cephalexin [Keflex] 500 mg PO BID 7 Days #14 capsule Referrals: PUMA LEACH PA-C [PHYSICIAN BUILDINGS AND GROUNDS DIRECTOR] - Follow up as needed BROOKLYNN MCKENZIE MD [ACTIVE STAFF] - Follow up as needed DAIN PAGAN MD [ACTIVE STAFF] - Follow up as needed
[2020-01-22] MEDS ORDERED: MAG HYDROX/AL HYDROX/SIMETH SUSP 30 ML UDCUP PO ONE (12:04)
[2020-01-22] MEDS ORDERED: LIDOCAINE 2% VISCOUS SOLN 15 ML UDCUP PO ONE (12:04)
[2020-01-22] MEDS ORDERED: METOCLOPRAMIDE HCL ORAL SOLN 10 MG/10 ML UDCUP PO ONE (12:04)
[2020-01-22] MEDS ORDERED: SUCRALFATE 1 GM TABLET PO ONE (12:04)
[2020-01-22] MEDS ORDERED: PANTOPRAZOLE SODIUM 40 MG TABLET.DR PO ONE (12:05)
[2020-01-22 12:29] LABS: ABSOLUTE BASOPHILS # (AUTO) 0.1 10^3/uL (0.0-0.2); ABSOLUTE EOSINOPHILS # (AUTO) 0.1 10^3/uL (0.0-0.6); ABSOLUTE LYMPHOCYTES (AUTO) 2.6 10^3/uL (0.5-4.7); ABSOLUTE MONOCYTES (AUTO) 0.6 10^3/uL (0.1-1.4); ABSOLUTE NEUT (AUTO) 5.9 10^3/uL (1.7-8.2); BASOPHILS % (AUTO) 0.7 % (0-2); EOSINOPHILS % (AUTO) 0.7 % (0-6); HEMATOCRIT 40.8 % (36.0-47.0); HEMOGLOBIN 14.2 g/dL (12.0-15.5); LYMPHOCYTES % (AUTO) 28.5 % (13-45); MEAN CORPUSCULAR HEMOGLOBIN 31.2 pg (27.0-33.4); MEAN CORPUSCULAR HGB CONC 34.8 g/dL (32.0-36.0); MEAN CORPUSCULAR VOLUME 90 fl (80-97); MONOCYTES % (AUTO) 6.2 % (3-13); PLATELET COUNT 348 10^3/uL (150-450); RED BLOOD COUNT 4.56 10^6/uL (3.72-5.28); RED CELL DISTRIBUTION WIDTH 13.9 % (11.5-14.0); SEGMENTED NEUTROPHILS % (AUTO) 63.9 % (42-78); TOTAL CELLS COUNTED % (AUTO) 100 %; WHITE BLOOD COUNT 9.2 10^3/uL (4.0-10.5)
[2020-01-22 12:52] LABS: APPEARANCE,URINE TURBID; BILIRUBIN,URINE NEGATIVE (NEGATIVE); COLOR,URINE YELLOW; GLUCOSE, URINE NEGATIVE (NEGATIVE); KETONES,URINE NEGATIVE (NEGATIVE); LEUKOCYTE ESTERASE,URINE MODERATE (NEGATIVE); NITRITE,URINE NEGATIVE (NEGATIVE); PROTEIN,URINE 30 mg/dL (NEGATIVE); URINE SPECIFIC GRAVITY 1.016; UROBILINOGEN,URINE NEGATIVE mg/dL (<2.0)
[2020-01-22 13:27] LABS: ALBUMIN 4.6 g/dL (3.5-5.0); ALKALINE PHOSPHATASE 71 U/L (38-126); ANION GAP 10 (5-19); ASPARTATE AMINO TRANSFERASE 17 U/L (14-36); BILIRUBIN,TOTAL 0.3 mg/dL (0.2-1.3); BLOOD UREA NITROGEN 16 mg/dL (7-20); CALCIUM 10.1 mg/dL (8.4-10.2); CARBON DIOXIDE 27 mmol/L (22-30); CHLORIDE 101 mmol/L (98-107); GLUCOSE 93 mg/dL (75-110); POTASSIUM 3.5 mmol/L (3.6-5.0); TOTAL PROTEIN 7.7 g/dL (6.3-8.2)
[2020-01-22 13:57] VITALS: BP 133/97
== END 2020-01-22 14:05 | disposition home or self-care (01) ==
LOC: ER 11:33
DX: N39.0 Urinary tract infection, site not specified (principal); K21.9 Gastro-esophageal reflux disease without esophagitis; R10.13 Epigastric pain; R11.0 Nausea; F41.9 Anxiety disorder, unspecified; F32.9 Major depressive disorder, single episode, unspecified; Z88.2 Allergy status to sulfonamides; Z87.442 Personal history of urinary calculi
CPT/HCPCS: 99284; 36415; 87086; 83690; 85025; 80053; 81001; J3490 ×5

== ENCOUNTER 2020-01-27 01:11 | Emergency (ER) | payer MEDICAID ==
[2020-01-27] MEDS ORDERED: DIPH/PERTUSS(ACELL)/TETANUS VAC/PF 0.5 ML SYR (>=10YO) IM ONE (01:49)
[2020-01-27] MEDS ORDERED: LIDOCAINE 4% CREAM 5 GM TUBE TP ONE (01:49)
[2020-01-27] MEDS ORDERED: LIDOCAINE 2% INJ (20 MG/ML) 20 ML MDV INJ ONE (01:51)
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
[2020-01-27 05:07] VITALS: BP 119/80
== END 2020-01-27 04:35 | disposition home or self-care (01) ==
LOC: EEVIPCON 01:11 → ER 01:11
DX: S02.31XA Fracture of orbital floor, right side, initial encounter for closed fracture (principal); S20.221A Contusion of right back wall of thorax, initial encounter; S01.112A Laceration without foreign body of left eyelid and periocular area, initial encounter; S40.211A Abrasion of right shoulder, initial encounter; Y00.XXXA Assault by blunt object, initial encounter; R55 Syncope and collapse; R07.0 Pain in throat; Y08.89XA Assault by other specified means, initial encounter; Y93.89 Activity, other specified; Y92.003 Bedroom of unspecified non-institutional (private) residence as the place of occurrence of the external cause; Z88.2 Allergy status to sulfonamides; Z23 Encounter for immunization; F17.210 Nicotine dependence, cigarettes, uncomplicated
CPT/HCPCS: 99284; 90471; 73502; 73010; 70450; 70486; 90715; 12011; J3490 ×2

== ENCOUNTER 2020-03-20 04:56 | Emergency (ER) | payer MEDICAID ==
[2020-03-20] MEDS ORDERED: NORMAL SALINE 1000 ML 1,000 ML IV ONE (05:19)
[2020-03-20 05:32] LABS: ABSOLUTE BASOPHILS # (AUTO) 0.1 10^3/uL (0.0-0.2); ABSOLUTE EOSINOPHILS # (AUTO) 0.1 10^3/uL (0.0-0.6); ABSOLUTE LYMPHOCYTES (AUTO) 1.6 10^3/uL (0.5-4.7); ABSOLUTE MONOCYTES (AUTO) 0.8 10^3/uL (0.1-1.4); ABSOLUTE NEUT (AUTO) 6.4 10^3/uL (1.7-8.2); BASOPHILS % (AUTO) 0.6 % (0-2); EOSINOPHILS % (AUTO) 0.6 % (0-6); HEMATOCRIT 36.6 % (36.0-47.0); HEMOGLOBIN 12.3 g/dL (12.0-15.5); LYMPHOCYTES % (AUTO) 17.9 % (13-45); MEAN CORPUSCULAR HEMOGLOBIN 29.3 pg (27.0-33.4); MEAN CORPUSCULAR HGB CONC 33.5 g/dL (32.0-36.0); MEAN CORPUSCULAR VOLUME 87 fl (80-97); MONOCYTES % (AUTO) 9.3 % (3-13); PLATELET COUNT 309 10^3/uL (150-450); RED BLOOD COUNT 4.19 10^6/uL (3.72-5.28); RED CELL DISTRIBUTION WIDTH 15.4 % (11.5-14.0); SEGMENTED NEUTROPHILS % (AUTO) 71.6 % (42-78); TOTAL CELLS COUNTED % (AUTO) 100 %
[2020-03-20] MEDS ORDERED: METOCLOPRAMIDE HCL INJ/PF 10 MG/2 ML SDV IV ONE (05:35)
[2020-03-20] MEDS ORDERED: HYDROMORPHONE HCL INJ/PF 2 MG/ML AMPULE IV ONE (05:35)
--- NOTE | 2020-03-20 05:38 | ER Document Report ---
ED General - General TRAVEL OUTSIDE OF THE [place] IN LAST 30 DAYS: No <ESTER CASEY - Last Filed: 03/20/20 08:09> <LINH EDGAR - Last Filed: 03/20/20 10:18> - General Chief Complaint: Flank Pain Stated Complaint: FLANK PAIN Primary Care Provider: PUMA LEACH PA-C [Primary Care Provider] - Follow up as needed Notes: Patient is a 34-year-old white female who is status post 3 sections with no other reported past medical history who presents to the emergency dep artment with a chief complaint of right-sided flank pain that began a few days ago. She states it began vague and mild has progressively worsened. She states early this morning it woke her from her sleep and is now very severe. States the pain involves mostly the right abdomen, right flank and right back. She denies any known urinary issues. Denies any vaginal bleeding or discharge. Admits to some associated nausea and vomiting. Denies any fevers chills or night sweats. Denies any history of any similar episodes. (ESTER CASEY) - Related Data Allergies/Adverse Reactions: Sulfa (Sulfonamide Antibiotics) Allergy (Intermediate, Verified 01/22/20 11:51) Hives Past Medical History - Social History Smoking Status: Current Every Day Smoker Frequency of alcohol use: None Drug Abuse: None Family History: Reviewed & Not Pertinent Patient has homicidal ideation: No Pulmonary Medical History: Reports: Hx Bronchitis, Hx Pneumonia - AN Renal/ Medical History: Reports: Hx Kidney Stones. Denies: Hx Peritoneal Dialysis Psychiatric Medical History: Reports: Hx Anxiety, Hx Attention Deficit Hyperactivity Disorder, Hx Depression, Hx Personality Disorder Past Surgical History: Reports: Hx Section - x2, Hx Oral Surgery - JAW, Hx Orthopedic Surgery - L arm, jaw - Immunizations Immunizations up to date: Yes Hx Diphtheria, Pertussis, Tetanus Vaccination: Yes Hx Pneumococcal Vaccination: 10/09/00 <ESTER CASEY - Last Filed: 03/20/20 08:09> Review of Systems - Review of Systems Gastrointestinal: Nausea, Vomiting Genitourinary: Flank pain -: Yes All other systems reviewed and negative <ESTER CASEY - Last Filed: 03/20/20 08:09> Physical Exam - General General appearance: Alert In distress: Moderate - Respiratory Respiratory status: No respiratory distress Chest status: Nontender Breath sounds: Normal Chest palpation: Normal - Cardiovascular Rhythm: Regular Heart sounds: Normal auscultation - Abdominal Inspection: Normal Distension: No distension Bowel sounds: Normal Tenderness: Other - Diffuse tenderness to palpation in all quadrants, worse on the right upper and right lower quadrant as well as along the course of the right flank. - Back Back: CVA tenderness - Right-sided - Neurological Neuro grossly intact: Yes Cognition: Normal Orientation: AAOx4 - Psychological Associated symptoms: Agitated, Tearful - Skin Skin Temperature: Warm Skin Moisture: Dry Skin Color: Normal <ESTER CASEY - Last Filed: 03/20/20 08:09> - Vital signs Vitals: Temp 98.4 F 03/20/20 04:57 Course - Laboratory Result Diagrams: 03/20/20 05:20 03/20/20 05:20 <ESTER CASEY - Last Filed: 03/20/20 08:09> - Laboratory Result Diagrams: 03/20/20 05:20 03/20/20 05:20 <LINH EDGRA - Last Filed: 03/20/20 10:18> - Re-evaluation Re-evalutation: 03/20/20 06:54 After pain control was established with some Dilaudid, the patient did add that she has in fact had a kidney stone in the past. She states this feels exactly like her prior stone. She is never had to have any intervention or surgery for kidney stone. She denies any urinary tract symptoms such as dysuria or frequency or hesitancy or urgency. 03/20/20 06:[address] of the abdomen and pelvis to attempt location of the stone and evaluation of such. 03/20/20 07:42 Radiology called and advised looking at CAT scan they are concerned for possible torsion and requested ultrasound. Ultrasound order was immediately placed. I went and discussed with the patient ovarian history again and she advised that she has had ovarian cysts on both ovaries in the past but never had any further complications. She states she does not have these monitored regularly. She again denies any vaginal bleeding or discharge. She is still resting comfortably in the room at this point with no further nausea, vomiting and her pain is well controlled. 03/20/20 08:09 Pending ultrasound evaluation, patient signed out to oncoming provider, Linh Sánchez NP. (ESTER CASEY) 03/20/20 08:09 Report received on patient 03/20/20 09:30 Ultrasound shows a 4.7 cm right hemorrhagic ovarian cyst with no evidence of torsion. Patient was evaluated. Still mildly sore through the right pelvis and right side of the abdomen. She reports no history of ovarian cyst she reports no current follow-up with [facility]. I called Dr. Ag Hayes the [facility] career transition specialist spoke with his nurse as he is in a procedure at the moment requesting that they review the ultrasound and call me back regarding patient management 03/20/20 10:16 I spoke in person with Dr. Hayes, he indicates those the Dopplers are fine and no torsion patient may follow-up in the office they will make sure to follow her up. I spoke with the patient she is comfortable with this plan. (LINH EDGAR) - Vital Signs Vital signs: Temp Pulse Resp BP Pulse Ox 97.9 F 61 16 186/107 H 100 03/20/20 06:31 03/20/20 05:07 03/20/20 08:01 03/20/20 06:31 03/20/20 08:01 - Laboratory Laboratory results interpreted by me: 03/20/20 03/20/20 05:20 05:20 RDW 15.4 H Sodium 136.2 L Glucose 112 H Calcium 10.4 H Discharge <ESTER CASEY - Last Filed: 03/20/20 08:09> <LINH EDGAR - Last Filed: 03/20/20 10:18> - Discharge Clinical Impression: Right lateral abdominal pain, Hemorrhagic cyst of right ovary Condition: Stable Disposition: HOME, SELF-CARE Additional Instructions: Pain medication as prescribed no driving if taking narcotics for pain. Follow- up closely with [facility] for further evaluation and treatment we did speak with the [facility] on-call Dr. Hayes today. Call their office to obtain close follow-up. If you have uncontrolled pain at home return for reevaluation Prescriptions: Naproxen 500 mg PO BID PRN #14 tablet PRN Reason: Hydrocodone/Acetaminophen [[place] 5-325 mg Tablet] 1 tab PO Q4 PRN #15 tablet PRN Reason: Referrals: HAYLEE,PUMA, PA-C [Primary Care Provider] - Follow up as needed AG HAYES MD [ACTIVE STAFF] - Follow up as needed
[2020-03-20 05:49] LABS: ALBUMIN 3.8 g/dL (3.5-5.0); ALKALINE PHOSPHATASE 62 U/L (38-126); ANION GAP 6 (5-19); ASPARTATE AMINO TRANSFERASE 16 U/L (14-36); BILIRUBIN,TOTAL 0.4 mg/dL (0.2-1.3); BLOOD UREA NITROGEN 9 mg/dL (7-20); CALCIUM 10.4 mg/dL (8.4-10.2); CARBON DIOXIDE 26 mmol/L (22-30); CHLORIDE 104 mmol/L (98-107); GLUCOSE 112 mg/dL (75-110); POTASSIUM 3.6 mmol/L (3.6-5.0); TOTAL PROTEIN 6.7 g/dL (6.3-8.2)
--- NOTE | 2020-03-20 07:30 | RADIOLOGY REPORT (SQ) ---
CT ABDOMEN AND PELVIS WITHOUT INTRAVENOUS CONTRAST: 03/20/2020 6:26 AM CDT HISTORY: 34-year old with right-sided flank pain. COMPARISON: CT of abdomen and pelvis from 01/09/2020 TECHNIQUE: Axial contiguous images were obtained from the lung bases to the proximal femurs without oral or intravenous contrast administered. Sagittal and coronal reconstructions were also obtained and reviewed. This exam was performed according to our departmental dose-optimization program, which includes automated exposure control, adjustment of the mA and/or KV according to the patient's size and/or use of iterative reconstruction technique. FINDINGS: The lung bases appear clear without evidence of a focal consolidative airspace opacity or effusions. Evaluation of the solid organs is limited by the lack of intravenous contrast. The visualized hepatic parenchyma is unremarkable. The gallbladder demonstrates no evidence of calcified gallstones The spleen, pancreas, and adrenals are normal in size and contour. The kidneys demonstrate no evidence of hydronephrosis. No renal or ureteral calculi are seen. Bladder is moderately distended, but grossly appears unremarkable. The uterus is present. There is a right adnexal hypodensity measuring up to 4.1 cm which likely represents a physiologic cyst. The ovary is anteriorly positioned, different than on prior imaging. The right ovary overall measures at least 5.5 x 4.1 cm and is different position than on prior imaging. The stomach is not well distended. The small bowel loops appear unremarkable. No pericolonic inflammatory stranding is seen. The appendix appears unremarkable. There is no evidence of pneumoperitoneum or free fluid. The aorta and IVC appear normal in size. No significantly enlarged lymph nodes are seen in the abdomen or pelvis. Review of the bone show no evidence of any suspicious lytic or blastic lesions. IMPRESSION: The right ovary is prominent in size and deviated anteriorly. This could represent torsion in the appropriate clinical setting. Further evaluation with ultrasound of the pelvis transabdominal and transvaginal approach is recommended (ovary is sitting on top of the bladder). No renal or ureteral calculi are seen. There is no evidence of hydronephrosis. Clinical setting. Further evaluation with ultrasound of the pelvis is recommended.
[2020-03-20 07:39] LABS: AMORPHOUS SEDIMENT,URINE TRACE /HPF; APPEARANCE,URINE SLIGHTLY-CLOUDY; BILIRUBIN,URINE NEGATIVE (NEGATIVE); COLOR,URINE YELLOW; GLUCOSE, URINE NEGATIVE (NEGATIVE); KETONES,URINE NEGATIVE (NEGATIVE); LEUKOCYTE ESTERASE,URINE NEGATIVE (NEGATIVE); NITRITE,URINE NEGATIVE (NEGATIVE); PROTEIN,URINE NEGATIVE (NEGATIVE); UROBILINOGEN,URINE NEGATIVE mg/dL (<2.0)
--- NOTE | 2020-03-20 09:21 | RADIOLOGY REPORT (SQ) ---
EXAM DESCRIPTION: U/S NON OB PEL TV W/DOPPLER IMAGES COMPLETED DATE/TIME: 03/20/2020 8:58 am REASON FOR STUDY: torsion COMPARISON: CT dated 12/06/2011. TECHNIQUE: Dynamic and static grayscale images acquired of the pelvis via transvaginal approach and recorded on PACS. Additional selected color Doppler and spectral images recorded. LIMITATIONS: None. FINDINGS: UTERUS: Contour normal. No mass. ENDOMETRIAL STRIPE: No focal or generalized thickening. No masses. CERVIX: Nabothian cyst. RIGHT OVARY AND DOPPLER: There is a 4.7 cm hypoechoic mass with internal echoes. No flow on Doppler imaging. Normal ovarian arterial vascular flow without evidence for torsion. LEFT OVARY AND DOPPLER: Normal size. No worrisome masses. Normal arterial vascular flow without evide nce for torsion. FREE FLUID: None noted. OTHER: No other significant finding. MEASUREMENTS: UTERUS: 5.4 x 6.9 x 8.9 cm. ENDOMETRIAL STRIPE: 1.4 cm. RIGHT OVARY: 4.9 x 5.1 x 5.5 cm. LEFT OVARY: 2.9 x 2.9 x 4.1 cm. IMPRESSION: 4.7 CM NONVASCULAR HYPOECHOIC MASS IN THE RIGHT OVARY. MOST LIKELY A HEMORRHAGIC CYST. RECOMMEND FOLLOW-UP ULTRASOUND IN 6-12 WEEKS. NO EVIDENCE OF OVARIAN TORSION. NO OTHER SIGNIFICANT FINDINGS. COMMENT: Followup of asymptomatic indeterminate ovarian cysts detected by ultrasound in PREMENOPAUS [place] patients Cyst with findings suggestive of, but not classic for, hemorrhagic cyst, endometrioma or dermoid: *6-12 week followup US; if not a resolving hemorrhagic cyst, continued US or MRI followup; if endomet rioma or dermoid still not confirmed, consider surgical consultation Single thin septation or focal wall calcification: *Same as for benign cyst, based on size Multiple septations: *Consider surgical consultation Nodule in a cyst: *No blood flow in nodule: MRI or surgical consultation *Blood flow in nodule: surgical consultation Note: If cyst is clinically symptomatic or otherwise concerning, other followup may be warranted. Based on recommendations of the Society for Radiologists in Ultrasound Consensus Conference Statement 2010 on management of asymptomatic ovarian and other adnexal cysts imaged at ultrasound. TECHNICAL DOCUMENTATION: JOB ID: [id number] 2010 [email or web address]- All Rights Reserved Rev Reading location - IP/workstation name: [email or web address]
[2020-03-20 10:42] VITALS: BP 118/74
== END 2020-03-20 10:40 | disposition home or self-care (01) ==
LOC: ER 04:56
DX: N83.201 Unspecified ovarian cyst, right side (principal); R10.11 Right upper quadrant pain; R10.31 Right lower quadrant pain; M54.9 Dorsalgia, unspecified; R11.2 Nausea with vomiting, unspecified; Z88.2 Allergy status to sulfonamides; F17.200 Nicotine dependence, unspecified, uncomplicated
CPT/HCPCS: 99284; 96361; 51701; 96374; 96375; 36415; 83690; 84703; 85025; 80053; 81001; 76830; 93976; 74176; J2765; J1170; J7030

== ENCOUNTER 2020-03-22 09:13 | Emergency (ER) | payer MEDICAID ==
[2020-03-22] MEDS ORDERED: NORMAL SALINE 1000 ML 1,000 ML IV ONE ×2 (09:51→11:30)
[2020-03-22] MEDS ORDERED: ONDANSETRON HCL INJ/PF 4 MG/2 ML SDV IV ONE (09:51)
[2020-03-22] MEDS ORDERED: MORPHINE SULFATE 10 MG/ML INJ IV ONE (09:51)
--- NOTE | 2020-03-22 09:56 | ER Document Report ---
ED GI/ - General Chief Complaint: Flank Pain Stated Complaint: RIGHT SIDE PAIN Time Seen by Provider: 03/22/20 09:47 Primary Care Provider: PUMA LEACH PA-C [Primary Care Provider] - Follow up as needed Notes: HPI: 34-year-old female who presents today with what she states is some intermittent right lower quadrant abdominal pain without radiation for in 1 month. She states nausea and vomiting. She denies diarrhea, fevers, dysuria. She denies a history of kidney stones. Patient has been seen and evaluated for this multiple times including 2 days ago. 2 days ago she was found to have a right 4.5 cm possible hemorrhagic cyst. INVENTORY CONTROL ASSISTANT was consulted. She was told to follow-up with Dr. Perez. She has not yet seen Dr. Perez. Patient was not aware of her discharge diagnosis according to the patient's report. She states that he has been told "many different things" and is unsure the etiology of her pain. She did also receive a CT scan on her evaluation 2 days ago as recorded. This was followed by the ultrasound followed by INVENTORY CONTROL ASSISTANT consultation. ROS: See HPI All other review of systems reviewed and otherwise negative Reviewed vital signs and nursing note as charted by RN. PHYSICAL EXAM: CONSTITUTIONAL: Alert and oriented and responds appropriately to questions. Well-appearing; well-nourished HEAD: Normocephalic; atraumatic EYES: Sclerae non-icteric ENT: Normal nose; no rhinorrhea; moist mucous membranes; pharynx without lesions noted NECK: Supple without meningismus; non-tender; no cervical lymphadenopathy, no masses CARD: Regular rate and rhythm; no murmurs; symmetric distal pulses RESP: Normal chest excursion without splinting or tachypnea; breath sounds clear and equal bilaterally ABD/GI: Normal bowel sounds; non-distended; soft, very mildly tender to palpation the right lower quadrant without any palpable masses, rebound or guarding BACK: The back appears normal and is non-tender to palpation EXT: Normal ROM in all joints; non-tender to palpation; no edema SKIN: No acute lesions noted NEURO: CN 2-12 intact; 5/5 bilateral upper and lower extremity strength with sensation intact to light touch PSYCH: The patient's mood and manner are appropriate. Grooming and personal hygiene are appropriate. TRAVEL OUTSIDE OF THE [place] IN LAST 30 DAYS: Yes - Related Data Allergies/Adverse Reactions: Sulfa (Sulfonamide Antibiotics) Allergy (Intermediate, Verified 01/22/20 11:51) Hives Past Medical History - Social History Smoking Status: Unknown if Ever Smoked Family History: Reviewed & Not Pertinent Pulmonary Medical History: Reports: Hx Bronchitis, Hx Pneumonia - AN INFANT Renal/ Medical History: Reports: Hx Kidney Stones. Denies: Hx Peritoneal Dialysis Psychiatric Medical History: Reports: Hx Anxiety, Hx Attention Deficit Hyperactivity Disorder, Hx Depression, Hx Personality Disorder Past Surgical History: Reports: Hx Section - x2, Hx Oral Surgery - JAW, Hx Orthopedic Surgery - L arm, jaw - Immunizations Immunizations up to date: Yes Hx Diphtheria, Pertussis, Tetanus Vaccination: Yes Hx Pneumococcal Vaccination: 10/09/00 Physical Exam - Vital signs Vitals: Temp Pulse Resp BP Pulse Ox 97.6 F 138 H 24 H 109/80 99 03/22/20 09:17 03/22/20 09:17 03/22/20 09:17 03/22/20 09:17 03/22/20 09:17 Course - Re-evaluation Re-evalutation: 03/22/20 09:55 Given the history and physical with persistent intermittent pain, I will order a repeat ultrasound of the pelvis and possibly we consult INVENTORY CONTROL ASSISTANT depending on the results. I do believe we have an etiology of the patient's pain given the previous CT and ultrasound imaging 2 days ago. I would like to assess for the progression of the cyst in size or drop in the patient's hemoglobin level. I would also like to assess possible flow deficiency. We will perform a pelvic examination given the patient's chronic intermittent pain to evaluate for the possibility of a coincided pelvic infection. I do not believe patient requires repeat CT imaging at this time. 11:42 AM labs and imaging as recorded. Still awaiting urine analysis. Second liter of fluid has been provided. Patient's pain is much improved. Repeat heart rate 82. On pelvic examination the patient has no obvious external lesions. White discharge in the vaginal vault. No adnexal masses or cervical motion tendern ess. Ultrasound shows normal arterial flow to the ovary. 03/22/20 12:24 I have called and discussed the case with the INVENTORY CONTROL ASSISTANT here [facility] [facility]. I explained the previous visit in today's visit. I explained the pelvic examination as well as the positive trichomonas as well as the ultrasound results. He states he does not believe tubo-ovarian abscesses in the differential. He does not believe that the patient requires further evaluation or admission here. He would like the patient to follow-up in the office as an outpatient. We will provide the appropriate antibiotics here and discharge the patient on a 10-day course of doxycycline with strict return precautions. Patient's pain is improved with normal vital signs at this time. - Vital Signs Vital signs: Temp Pulse Resp BP Pulse Ox 98.1 F 138 H 11 L 121/93 H 99 03/22/20 09:43 03/22/20 09:17 03/22/20 10:01 03/22/20 10:01 03/22/20 10:01 - Laboratory Result Diagrams: 03/22/20 10:00 03/22/20 10:00 Laboratory results interpreted by me: 03/22/20 03/22/20 10:00 10:00 RBC 5.37 H Hgb 15.9 H D RDW 15.1 H Sodium 133.8 L Potassium 5.2 H Calcium 10.5 H Discharge - Discharge Clinical Impression: Hemorrhagic cyst of right ovary, Trichomonas infection Condition: Fair Disposition: HOME, SELF-CARE Additional Instructions: Come back immediately for any increased pain, change in location or quality of pain, fevers or vomiting, or any other acute problems. Please make sure that you complete the course of antibiotics and do not engage in any sexual activity until both you and your partners have been completely treated. Please follow-up with the additional lab values including syphilis testing we have performed. Please make sure that you follow-up with the INVENTORY CONTROL ASSISTANT as we have helped expedite for you. Prescriptions: Doxycycline Hyclate 100 mg PO BID #20 tablet. Referrals: PUMA LEACH PA-C [Primary Care Provider] - Follow up as needed
[2020-03-22 10:36] LABS: ALBUMIN 4.6 g/dL (3.5-5.0); ALKALINE PHOSPHATASE 65 U/L (38-126); ANION GAP 7 (5-19); ASPARTATE AMINO TRANSFERASE 17 U/L (14-36); BILIRUBIN,TOTAL 0.4 mg/dL (0.2-1.3); BLOOD UREA NITROGEN 16 mg/dL (7-20); CALCIUM 10.5 mg/dL (8.4-10.2); CARBON DIOXIDE 26 mmol/L (22-30); CHLORIDE 101 mmol/L (98-107); GLUCOSE 110 mg/dL (75-110); POTASSIUM 5.2 mmol/L (3.6-5.0)
[2020-03-22 10:47] LABS: ABSOLUTE LYMPHOCYTES (AUTO) 2.1 10^3/uL (0.5-4.7); ABSOLUTE MONOCYTES (AUTO) 0.9 10^3/uL (0.1-1.4); ABSOLUTE NEUT (AUTO) 6.4 10^3/uL (1.7-8.2); BASOPHILS % (AUTO) 0.5 % (0-2); EOSINOPHILS % (AUTO) 0.4 % (0-6); LYMPHOCYTES % (AUTO) 21.8 % (13-45); MEAN CORPUSCULAR HEMOGLOBIN 29.5 pg (27.0-33.4); MEAN CORPUSCULAR HGB CONC 33.8 g/dL (32.0-36.0); MEAN CORPUSCULAR VOLUME 87 fl (80-97); MONOCYTES % (AUTO) 9.1 % (3-13); PLATELET COUNT 374 10^3/uL (150-450); RED BLOOD COUNT 5.37 10^6/uL (3.72-5.28); RED CELL DISTRIBUTION WIDTH 15.1 % (11.5-14.0); SEGMENTED NEUTROPHILS % (AUTO) 68.2 % (42-78); TOTAL CELLS COUNTED % (AUTO) 100 %; WHITE BLOOD COUNT 9.4 10^3/uL (4.0-10.5)
[2020-03-22 10:48] LABS: HEMOGLOBIN 15.9 g/dL (12.0-15.5)
--- NOTE | 2020-03-22 10:58 | RADIOLOGY REPORT (SQ) ---
EXAM DESCRIPTION: U/S NON OB PEL W/DOPPLER IMAGES COMPLETED DATE/TIME: 03/22/2020 10:47 am REASON FOR STUDY: 1; rlq pain COMPARISON: 03/20/2020. TECHNIQUE: Dynamic and static grayscale images acquired of the pelvis via transvaginal approach and recorded on PACS. Additional selected color Doppler and spectral images recorded. LIMITATIONS: None. FINDINGS: UTERUS: Contour normal. No mass. ENDOMETRIAL STRIPE: No focal or generalized thickening. No masses. CERVIX: No nabothian cysts. RIGHT OVARY AND DOPPLER: Normal size. Nonvascular hypoechoic mass measuring 4.3 cm, unchanged. Yazmin l arterial vascular flow without evidence for torsion. LEFT OVARY AND DOPPLER: Normal size. No worrisome masses. Normal arterial vascular flow without evide nce for torsion. FREE FLUID: None noted. OTHER: No other significant finding. MEASUREMENTS: UTERUS: 4.7 x 6.1 x 8.5 cm. ENDOMETRIAL STRIPE: 8.6 mm. RIGHT OVARY: 4.7 x 5.0 x 5.4 cm. LEFT OVARY: 2.3 x 3.0 x 3.1 cm. IMPRESSION: PROBABLE HEMORRHAGIC CYST IN THE RIGHT OVARY. NO CHANGE FROM PRIOR STUDY. NO ACUTE FIN DINGS. TECHNICAL DOCUMENTATION: JOB ID: [id number] [employer]- All Rights Reserved Rev-02/23 Reading location - IP/workstation name: [email or web address]
[2020-03-22 12:03] LABS: APPEARANCE,URINE SLIGHTLY-CLOUDY; BILIRUBIN,URINE NEGATIVE (NEGATIVE); COLOR,URINE YELLOW; GLUCOSE, URINE NEGATIVE (NEGATIVE); KETONES,URINE NEGATIVE (NEGATIVE); LEUKOCYTE ESTERASE,URINE NEGATIVE (NEGATIVE); NITRITE,URINE NEGATIVE (NEGATIVE); PROTEIN,URINE NEGATIVE (NEGATIVE); URINE SPECIFIC GRAVITY 1.019; UROBILINOGEN,URINE NEGATIVE mg/dL (<2.0)
[2020-03-22 12:09] LABS: BACTERIA (WET MOUNT) 4+ BACTERIA SEEN; EPITHELIALS (WET MOUNT) 4+ EPITHELIALS SEEN; T.VAGINALIS (WET MOUNT) TRICHOMONAS SEEN; WBCS (WET MOUNT) 1+ WBCS SEEN; YEAST (WET MOUNT) NO YEAST SEEN
[2020-03-22] MEDS ORDERED: CEFTRIAXONE INJ 250 MG VIAL IM ONE (12:16)
[2020-03-22] MEDS ORDERED: LIDOCAINE 1% INJ-PF (10 MG/ML) 30 ML SDV NEB ONE (12:16)
[2020-03-22] MEDS ORDERED: AZITHROMYCIN 1 GM SUSP PACKET PO ONE (12:16)
[2020-03-22] MEDS ORDERED: METRONIDAZOLE 500 MG TABLET PO ONE (12:16)
[2020-03-22 13:31] LABS: CHLAM PCR NOT DETECTED (NOT DETECT)
[2020-03-22 14:20] VITALS: BP 133/101
== END 2020-03-22 14:21 | disposition home or self-care (01) ==
LOC: ER 09:13
DX: N83.201 Unspecified ovarian cyst, right side (principal); A59.9 Trichomoniasis, unspecified; R10.31 Right lower quadrant pain; R11.2 Nausea with vomiting, unspecified
CPT/HCPCS: 99284; 96372; 96361; 96374; 96375; 36415; 87086; 87210; 83690; 85025; 81025; 86592; 80053; 81001; 87491; 87591; 76856; 93976; J3490 ×2; Q0144; J2270; J2405; J7030; J0696; 87088